=== PATIENT | female | born 1950 | race Caucasian/White ===

== ENCOUNTER 2023-07-26 17:44 | Emergency (ER) | payer OTHER, SELFPAY ==
[2023-07-26 17:47] VITALS: BP 164/77; PULSE 131; RESP 18; TEMP 36.9; O2SAT 93; BMI 32.2
--- NOTE | 2023-07-26 17:56 | ED_ITS ---
HPI - General Adult General Chief complaint: Allergic Reaction Stated complaint: chest pain Time Seen by Provider: 07/26/23 18:17 Source: patient Mode of arrival: ambulatory Limitations: no limitations History of Present Illness HPI narrative: Patient history of AFib , no history of allergic reactions in the past went to bed for a nap woke up with itching all over the body with slight redness bilateral palms took Benadryl prior to arrival still itching no shortness of breath Related Data Previous Rx's Medication Instructions Recorded diphenhydramine HCl 25 mg capsule 50 mg (2 x 25 mg) PO TID PRN 07/26/23 (Benadryl) allergic reaction #30 caps Allergies Allergy/AdvReac Type Severity Reaction Status Date / Time No Known Allergies Allergy Verified 07/26/23 17:48 Review of Systems 2 Review of Systems: Yes all other systems are reviewed and are negative [facility] Social History Social History Alcohol intake: never Smoked in Last 30 Days: No Use of substances other than those prescribed or required for medical reasons: No Advance Directives: No Advance Directives Information Provided: No Physical Exam ED Vital Signs: Vital Signs - 24 hr 07/26/23 17:47 07/26/23 19:12 07/26/23 20:58 Temperature 98.5 F 97.7 F Pulse Rate 131 H 109 H 110 H Respiratory Rate 18 20 18 Blood Pressure 164/77 H 154/85 H 146/85 H Pulse Oximetry 93 97 97 Oxygen Delivery Method Room Air Room Air Room Air BMI result Body Mass Index 32.2 Appearance: Alert. Oriented X3. No acute distress. Eyes: PERRLA, No Nystagmus ENT: Pharynx normal. Oral Mucosa moist lip and tongue normal Neck: Normal inspection. Neck supple. CVS: Normal heart rate and rhythm. Pulses normal. Respiratory: No respiratory distress. Equal air entry bilateral, no wheezing/rales/rhonchi Abdomen: Soft and nontender. Bowel sounds are present, no mass palpable, no CVA tenderness Skin: Skin warm and dry. No hives noted Normal skin turgor. Extremities: No lower extremity edema. No calf tenderness redness bilateral palm Neuro: Oriented X 3. No motor deficit. Medications Administered Discontinued Medications Generic Name Dose Route Start Last Admin Trade Name Freq PRN Reason Stop Dose Admin Diphenhydramine HCl 50 mg 07/26/23 18:38 07/26/23 19:07 Diphenhydramine Hcl 50 Mg/Ml Vial IVPUSH 07/26/23 18:39 50 mg ONCE ONE Administration Methylprednisolone Sodium Succinate 125 mg 07/26/23 18:38 07/26/23 19:07 Methylprednisolone Sod Succ 125 Mg/2 Ml Vial IVPUSH 07/26/23 18:39 125 mg ONCE ONE Administration Medical Decision Making Medical Decision Making [facility] Narrative: RME: 72 yold female presents to the ED for chest pain and having an allergic reaction. Patient has generalized HIves> negative for swelling of uvual. lungs clear. ROom air 02 sat 93%. Charge nurse Edwar made aware. patient brought in to the ED immediatley. Lab Data [facility] Lab Attestation statement: I reviewed the patient's lab results. 07/26/23 18:51 07/26/23 18:51 Labs: Lab Results 07/26/23 Range/Units 18:51 WBC 6.0 (4.8-10.8) X10*3/uL RBC 4.09 L (4.20-5.50) X10*6/uL Hgb 12.7 (12.0-16.0) g/dl Hct 38.2 (37.0-47.0) % MCV 93.4 (80.0-98.0) fL MCH 31.1 (27.0-33.0) pg MCHC 33.2 (31.0-35.0) g/dl RDW 13.4 (11.0-16.0) % Plt Count 172 (160-400) X10*3/uL MPV 10.2 (9.4-12.3) fL Immature Gran % (Auto) 1.2 H (0.0-0.4) % Neut % (Auto) 50.8 (45-73) % Lymph % (Auto) 39.9 (20-40) % Nicholas % (Auto) 6.8 (2-11) % Eos % (Auto) 0.8 (0-4) % Baso % (Auto) 0.5 (0-2) % Lymph # (Auto) 2.4 (1.2-4.9) X10*3/uL Nicholas # (Auto) 0.4 (0.1-1.2) X10*3/uL Eos # (Auto) 0.1 (0.0-0.4) X10*3/uL Baso # (Auto) 0.0 (0.0-0.2) X10*3/uL Abs Immat Gran (auto) 0.07 H (0.00-0.03) X10*3/uL Absolute Neuts (auto) 3.0 (2.0-8.3) x10*3/uL Absolute Nucleated RBC 0.000 (0.0-0.012) X10*3/uL Nucleated RBC % (auto) 0.0 (0.0-0.2) /100WBC Sodium 142 (135-145) mmol/L Potassium 3.8 (3.3-5.1) mmol/L Chloride 109 H (96-108) mmol/L Carbon Dioxide 21 L (22-29) mmol/L Anion Gap 16 (12-20) BUN 21 H (9-16) mg/dL Creatinine 0.77 (0.5-1.4) mg/dL Estim Creat Clear Calc 59.7 Estimated GFR > 60 Random Glucose 266 H (60-115) mg/dL Calcium 9.7 (8.4-10.2) mg/dL Discharge Plan Discharge Clinical Impression: Allergic reaction Patient Disposition: Home, Self-Care Instructions: General Allergic Reaction (ED) Additional Instructions: Cause of your allergic reaction is not very clear Take Benadryl 1-2 tablets every 6 hours as needed And follow with PCP for further management Prescriptions: New diphenhydramine HCl [Benadryl] 25 mg capsule 50 mg PO TID PRN (Reason: allergic reaction) Qty: 30 0RF Interventions: ED Discharge Assessment Last Done: 07/26/23 21:00 Discharge Date/Time: 07/26/23 21:00
--- NOTE | 2023-07-26 18:07 | ECG_ITS ---
Test Reason : CHEST PAIN Blood Pressure : / mmHG Vent. Rate : 120 BPM Atrial Rate : 120 BPM P-R Int : 128 ms QRS Dur : 062 ms QT Int : 336 ms P-R-T Axes : 059 047 072 degrees QTc Int : 474 ms Sinus tachycardia Otherwise normal ECG No previous ECGs available Referred By: Davian Beck Electronically Signed By:SOHAIL SCHAFER
--- NOTE | 2023-07-26 18:24 | PC.NURSE ---
pt appears itchy, sts she didn't eat or take anything different than any other day, took an hour and a half nap and woke up itchy all over . pt also reporting chest tightness but doesn't know if it is from anxiety. EKG obtained, 20G IV established to the RAC, pt placed on bedside monitor. currently resting quietly on stretcher in no apparent distress. awaiting provider pickup.
[2023-07-26 18:54] LABS: MANUAL DIFF FLAG NO
[2023-07-26 18:56] LABS: Basophils Percent Auto 0.5 % (0-2); Eosinophils Absolute Auto 0.1 X10*3/uL (0.0-0.4); Eosinophils Percent Auto 0.8 % (0-4); Hematocrit 38.2 % (37.0-47.0); Hemoglobin 12.7 g/dl (12.0-16.0); Imm Gran Abs Auto 0.07 X10*3/uL (0.00-0.03); Imm Gran Pct Auto 1.2 % (0.0-0.4); Lymphocytes Absolute Auto 2.4 X10*3/uL (1.2-4.9); Lymphocytes Percent Auto 39.9 % (20-40); Mean Corpuscular HGB Conc 33.2 g/dl (31.0-35.0); Mean Corpuscular Hemoglobin 31.1 pg (27.0-33.0); Mean Corpuscular Volume 93.4 fL (80.0-98.0); Mean Platelet Volume 10.2 fL (9.4-12.3); Monocytes Absolute Auto 0.4 X10*3/uL (0.1-1.2); Monocytes Percent Auto 6.8 % (2-11); Neutrophils Percent Auto 50.8 % (45-73); Platelet Count 172 X10*3/uL (160-400); Red Blood Count 4.09 X10*6/uL (4.20-5.50); Red Cell Distribution Width 13.4 % (11.0-16.0)
[2023-07-26] MEDS: methylPREDNISolone Sod Succ 125 MG/2 ML VIAL IVPUSH (19:07)
[2023-07-26] MEDS: diphenhydrAMINE HCL 50 MG/ML VIAL IVPUSH (19:07)
[2023-07-26 19:12] VITALS: BP 154/85; PULSE 109; RESP 20; TEMP 36.5; O2SAT 97
[2023-07-26 19:15] LABS: Anion Gap 16 (12-20); Blood Urea Nitrogen 21 mg/dL (9-16); Calcium 9.7 mg/dL (8.4-10.2); Carbon Dioxide 21 mmol/L (22-29); Chloride 109 mmol/L (96-108); Creatinine Clr Calc Pharmacy 59.7; Estimated Glomerular Filt Rate > 60; Glucose Random 266 mg/dL (60-115); Potassium 3.8 mmol/L (3.3-5.1); Sodium 142 mmol/L (135-145)
[2023-07-26 20:58] VITALS: BP 146/85; PULSE 110; RESP 18; O2SAT 97
== END 2023-07-26 21:00 | disposition home or self-care (01) ==
PROVIDERS: Emergency Provider Internal Medicine; PCP Internal Medicine
DX: R07.89 Other chest pain (principal); I48.91 Unspecified atrial fibrillation; Z79.899 Other long term (current) drug therapy
CPT/HCPCS: 36415; 80048; 85025; 93005; 96374; 96375; 99284; J1200; J2930

== ENCOUNTER 2025-02-06 11:27 | Outpatient (REF) | payer MEDICARE, SELFPAY ==
--- NOTE | ~2025-02-06 | XR_ITS ---
EXAMINATION: XR PARANASAL SINUSES 3 VIEWS HISTORY: SINUSITIS COMPARISON: There are no prior studies for comparison. FINDINGS: Four views of the paranasal sinuses are submitted. The bilateral frontal, maxillary, ethmoid, and sphenoid sinuses are well-aerated and clear. No air/fluid levels are identified. XR/XR sinus min 3V IMPRESSION: Unremarkable examination of the paranasal sinuses. Electronically signed by: Jhon Braun MD 02/06/2025 02:44 PM EDT RP
--- OUTSIDE RECORDS SUMMARY | 2025-02-06 13:08 | XMS_ITS | Clinical Summary ---
Author Organization [facility] [address] [facility] Address [address] [place] [address] Phone Care Team Providers Care Datapower Developer Name Role Phone Tone Valadez MD Primary Care Provider [phone] Allergies Active Allergy Reactions Criticality Noted Date Comments Omeprazole Magnesium Hives Medium 12/14/2017 Medications metFORMIN XR (GLUCOPHAGE-XR) 500 mg 24 hr tablet Take 1 tablet (500 mg total) by mouth 2 (two) times a day. 4 Active ammonium lactate (LAC-HYDRIN) 12 % lotion Apply to soles of feet daily. At night wear socks to bed 3 Active lansoprazole (PREVACID) [address] capsule Take 1 Capsule by mouth daily for 360 days. 4 02/25/20 25 Active fluticasone propionate (FLONASE) 50 mcg/actuation nasal spray 2 Sprays by Each Nare route daily. 4 Active loratadine (CLARITIN) 10 mg tablet Take 1 tablet (10 mg total) by mouth 1 (one) time each day. 3 Active hydrocortisone 1 % topical cream Apply topically to thick skin on the top of the foot once daily for 6 weeks 3 Active clotrimazole (LOTRIMIN) 1 % cream Apply to skin daily for 6 weeks 2 Active mv-min/iron/folic /calcium/vitK (WOMEN'S MULTIVITAMIN ORAL) Take by mouth. Activ e omega-3 acid ethyl esters (LOVAZA) 1 gram capsule Take by mouth. Activ e UNABLE TO FIND Take 1,000 mg by mouth. Calcium-Magnes ium-Vitamin D (CALCIUM 500 OR) Active lisinopriL (PRINIVIL,ZESTRIL ) 5 mg tablet Take 1 tablet (5 mg total) by mouth 1 (one) time each day. Active lancets (OneTouch Delica Plus Lancet) 33 gauge 1 Each by Does not apply route daily. Ell.9 - Does not apply Active glucose blood test strip Use to test blood sugar once a day Active OneTouch Ultra2 Meter misc 1 each by Other route 1 (one) time. Active Active Problems Problem Noted Date Diagnosed Date Thyroid nodule 09/27/2024 Hypertension 08/12/2024 Microalbuminuria 06/04/2019 Obesity (BMI 30.0-34.9) 06/04/2019 Osteoporosis 11/22/2017 Overview (08/12/2024): T score -3.2 lumbar spine, 11/18/2017. 06/2020 T score spine -1.6 hip -3.0 Type II diabetes mellitus with renal manifestati ons 2017 Hyperlipidemia 10/20/2017 Overview (08/12/2024): Total cholesterol 217 and LDL cholesterol 130, 07/11/2016 Adjustment disorder with mixed emotional feature s 05/29/2017 Allergic rhinitis 07/11/2016 Encounters Date Type Department Care Team Description 01/12/2025 10:00 AM EST Office Visit Orthopedic Surgery [facility] 160 [address] [facility] [address] [place] [phone] Analia Moran PA Glenohumeral arthritis, right (Primary Dx); Rotator cuff syndrome of right shoulder; Chronic pain of both shoulders 12/27/2024 9:15 AM EST Consult General Surgery [facility] 175 [facility] [address] [place] [phone] Sakshi aMnn MD Adenopathy (Primary Dx); Type 2 diabetes mellitus without complication, without long-term current use of insulin ([facility]); Thyroid nodule; Enlarged lymph node 12/27/2024 8:00 AM EST Office Visit Endocrinology - [place] [id number] [place] [phone] Farrah Giles PA Type 2 diabetes mellitus with diabetic microalbuminuria, without long-term current use of insulin ([facility]) (Primary Dx); Thyroid nodule; Osteoporosis, unspecified osteoporosis type, unspecified pathological fracture presence from Last 3 Months Immunizations Name Administration Dates Next Due Influenza trivalent, 0.5mL ( Fluzone High-dose) 65yo and older 09/21/2023,08/16/2021,09/30/2020 Influenza trivalent, with pr eservative (Fluzone; Afluria) 6mo and older 10/22/2010 Pfizer (ages 12 & older) Bivalent, COVID-19 11/10 Pfizer SARS-CoV-2 COVID-19, mRNA, LNP-S, preservative free 09/09/2021 Pneumococcal conjugate 13 va lent (Prevnar 13, PCV13) 2mo and older 10/20/2017 Pneumococcal polysaccharide 23 valent (Pneumovax 23) 2yo and older 07/11/2016 Td Tetanus diptheria (Tdvax) 7yo and older 11/18,01/11/2018,07/08/2001 Td, Unspecified 07/08/2001 Zoster recombinant (Shingrix ) 19yo and older 04/09/2023,12/23/2022 Surgical History Surgery Date Site/Laterality Comments MULTIPLE TOOTH EXTRACTIONS PROCEDURE: HISTORICAL DENTAL EXTRACTION CHOLECYSTECTOMY 1970 PROCEDURE: HISTORICAL CHOLECYSTECTOMY OTHER SURGICAL HISTORY PROCEDURE: ---- OTHER ----; COMMENT: D and C times 2 COLONOSCOPY 12/14/2017 PROCEDURE: HISTORICAL COLONOSCOPY; COMMENT: negative screening exam. COLONOSCOPY 01/19/2002 PROCEDURE: HISTORICAL COLONOSCOPY; COMMENT: Negative screening exam. (report in voice recognition folder on M drive.) ESOPHAGOGASTRODUODENOSCOPY 11/24/2022 PROCEDURE: MD EGD TRANSORAL BIOPSY SINGLE/MULTIPLE; COMMENT: Manzo's esophagus, esoph ulcer, hiatal hernia Medical History Medical History Date Comments Uncontrolled type 2 diabetes mellitus without complication 2017 DX:Uncontrolled type 2 diabe mariia mellitus without complication Osteoporosis 11/22/2017 DX:Osteoporosis; COMMENT: T score -3.2 lumbar spine, 11/18/2017. Hyperlipidemia 10/20/2017 DX:Hyperlipidemi a; COMMENT: Total cholesterol 217 and LDL cholesterol 130, 07/11/2016 Allergic rhinitis 07/11/2016 DX:Allergic rh initis Adjustment disorder with mix ed emotional features 05/29/2017 DX:Adjustment disorder with mixed emotional features History of malignant neoplas m of large intestine DX:History of malignant neop lasm of large intestine Family History Medical History Relation Name Comments Other: Other Father Alzheimers age 55, age 78 Stroke Mother 82 Breast cancer Neg Hx Colon cancer Neg Hx Ovarian cancer Neg Hx Relation Name Status Comments Father Mother Social History Tobacco Use Types Packs/Day Years Used Date Smoking Tobacco: Former Cigarettes 1 12/31/1980 - 11/09/1990 Smokeless Tobacco: Never Tobacco Cessation:Counseling Given: Not Answered Alcohol Use Standard Drinks/Week Comments No 0 (1 standard drink = 0.6 oz pur e alcohol) Comments Unknown Sex and Gender Information Value Date Recorded Sex Assigned at Not on file Legal Sex Female 1:53 PM EST Gender Identity Not on file Sexual Orientation Not on file Obstetrics History Last Filed Vital Signs Vital Sign Reading Time Taken Comments Blood Pressure 121/79 12/27/2024 9:20 AM EST Pulse 88 12/27/2024 9:20 AM EST Temperature 35.9 ??C (96.6 ??F) 12/27/2024 9:20 AM ES T Respiratory Rate 16 09/27/2024 1:33 PM EST Oxygen Saturation 98% 09/22/2024 11:20 AM EST Inhaled Oxygen Concentration - - Weight 72.1 kg (159 lb) 01/12/2025 10:15 AM EST Height 152.4 cm (5') 01/12/2025 10:15 AM EST Body Mass Index 31.05 01/12/2025 10:15 AM EST Plan of Treatment Upcoming Encounters Date Type Department Care Team (Late st Contact Info) Description 03/30/2025 9:15 AM EDT Appointment Radiology Department - [address] [phone] 03/30/2025 10:00 AM EDT Appointment Bone Density - [address] [phone] 04/04/2025 8:20 AM EDT Office Visit Endocrinology [address] [phone] Farrah Giles PA [address] [place] [address] 04/17/2025 8:30 AM EDT Office Visit Orthopedic Surgery - [place] [address] [phone] Analia Moran PA [address] [address] 04/17/2025 2:00 PM EDT Office Visit Adult Medicine [address] [phone] Tone Valadez MD [address] [place] [address] 05/04/2025 4:30 PM EDT Appointment Radiology Department [address] [phone] 09/25/2025 4:00 PM EST Office Visit Adult [address] [phone] Tone Valadez MD [address] [place] [address] Health Maintenance Due Date Last Done Comments Diabetes: Annual Foot Exam 1960 RSV Immunization Patients 60+ Years Old (1 - Risk 60-74 years 1-dose series) 2010 Depression Screening 10/18/2022 Falls Risk Assessment 10/18/2022 Medicare Annual Wellness Visit 10/18/2022 Social Influencers of Health Screening 10/18/2022 COVID-19 Vaccine ( season) 2024 03/01/2024, 07/31/2023, 12/04/2022, Additional history exists Influenza Vaccine (#1) 2024 , 08/16/2021, 09/30/2020, Additional history exists Diabetes: Annual Retina Eye Exam 11/23/2024 11/23/2023 Breast Cancer Screening 01/20/2025 01/21/20 23, 01/11/2022, 11/23/2019, Additional history exists Diabetes: Blood Sugar Control Test (HGBA1C) 04/11/2025 10/11/2024, 09/12/2024, 03/04/2024, Additional history exists Diabetes: Annual Urine Albumin-Creatinine Ratio (uACR) 09/26/2025 09/26/2024, 09/21/2023 Diabetes: Annual GFR (Glomerular Filtration Rate) 09/26/2025 09/26/2024, 09/21/2023 Hypertension/CHF/CAD Annual BMP Blood Test 09/26/2025 09/26/2024, 09/21/2023 Colorectal Cancer Screening: Colonoscopy 12/14/2027 12/14/2017 Cholesterol Screening (Lipid Panel) 09/26/2029 09/26/2024, 09/21/2023 DTaP,Tdap,and Td Vaccines (5 - Td or Tdap) 11/18/2029 11/18/2019, 01/11/2018, 07/08/2001, Additional history exists Osteoporosis Screening (Bone Density Screening) 08/26/2032 08/26/2022, 07/02/2020, 11/18/2017 Hepatitis C Screening Completed 07/11/2016 Pneumococcal Vaccine: 50+ Years Completed 10/20/2017, 07/11/2016 Zoster Vaccines Completed 04/09/2023, 12/23/2022 HIB Vaccines Aged Out No longer eligi ble based on patient's age to complete this topic HPV Vaccines Aged Out No longer eligi ble based on patient's age to complete this topic Hepatitis A Vaccines Aged Out No long er eligible based on patient's age to complete this topic Hepatitis B Vaccines Aged Out No long er eligible based on patient's age to complete this topic IPV Vaccines Aged Out No longer eligi ble based on patient's age to complete this topic MMR Vaccines Aged Out No longer eligi ble based on patient's age to complete this topic Meningococcal ACWY Vaccine Aged Out N o longer eligible based on patient's age to complete this topic Meningococcal B Vacine Aged Out No lo nger eligible based on patient's age to complete this topic RSV Immunization Patients Under 20 months Aged Out No longer eligible based on patient's age to complete this topic Varicella Vaccines Aged Out No longer eligible based on patient's age to complete this topic Procedures Procedure Name Priority Date/Time Associated Diagnosis Comments HEMOGLOBIN A1C Routine 10/11/2024 3:52 PM EST Type 2 diabetes mellitus with hyperglycemia, without long-term current use of insulin ([facility]) MICROALBUMIN CREATININE URINE RATIO Routine 09/26/2024 9:57 AM EST Type 2 diabetes mellitus with other diabetic kidney complication, without long-term current use of insulin ([facility]) BASIC METABOLIC PANEL Routine 09/26/2024 9:57 AM EST Type 2 diabetes mellitus with other diabetic kidney complication, without long-term current use of insulin ([facility]) LIPID PANEL WITH REFLEX TO DIRECT LDL Routine 09/26/2024 9:57 AM EST Pure hypercholesterolemia DIABETES EYE EXAM Routine 11/23/2023 SCREENING MAMMOGRAPHY BI 2-VIEW BREAST INC CAD Routine 01/20/2023 9:31 AM EDT Encounter for screening mammogram for malignant neoplasm of breast DXA BONE DENISTY STUDY VERTEBRAL FRACTURE, INCLUDING LATERAL VIEW Routine 08/26/2022 10:23 AM EDT Age-related osteoporosis without current pathological fracture COLONOSCOPY Routine 12/14/2017 HEPATITIS C SCREENING Routine 07/11/2016 from Last 3 Months or Most Recently Relevant to Health Maintenance Results * (ABNORMAL) Hemoglobin A1c (10/11/2024 3:52 PM EST) Hemoglobin A1C 6.5(H) <6.5 % LAB CHEMISTRY METHOD 10/11/2024 9:17 PM EST [facility] Mean Bld Glu Estim. 140 mg/dL LAB CHEMISTRY METHOD 10/11/2024 9:17 PM EST [facility] Blood Venous blood specimen / Unknown Venipuncture / Unknown 10/11/2024 3:52 PM EST 10/11/2024 3:52 PM EST us Farrah MCKEON LAB BLOOD ORDERABLES Final Resul t [facility] [address] [place] [address], [place] [phone] * (ABNORMAL) Lipid panel with reflex to direct LDL (09/26/2024 9:57 AM EST) Cholesterol 196 0 - 200 mg/dL LAB CHEMISTRY METHOD 09/26/2024 3:04 PM [facility] Triglycerides 234(H) 0 - 150 mg/dL LAB CHEMISTRY METHOD 09/26/2024 3:04 PM [facility] HDL 47 >=40 mg/dL LAB CHEMISTRY METHOD 09/26/2024 3:04 PM [facility] LDL Calculated 102(H) 0 - 100 mg/dL LAB CHEMISTRY METHOD 09/26/2024 3:04 PM [facility] VLDL Cholesterol Sammy 46.8 mg/dL LAB CHEMISTRY METHOD 09/26/2024 3:04 PM [facility] Non HDL Chol. (LDL+VLDL) 149(H) <145 mg/dL LAB CHEMISTRY METHOD 09/26/2024 3:04 PM [facility] Chol/HDL Ratio 4.2 0.0 - 4.4 LAB CHEMISTRY METHOD 09/26/2024 3:04 PM [facility] Blood Venous blood specimen / Unknown Venipuncture / Unknown 09/26/2024 9:57 AM EST 09/26/2024 9:57 AM EST us Tone Valadez MD LAB BLOOD ORDERABLES Final Resu lt Performing Organization Address City/[facility]/ZIP Co de Phone Number [facility] [address] [place] [address], [place] [phone] * Microalbumin creatinine urine ratio (09/26/2024 9:57 AM EST) Creatinine, Urine 58.0 mg/dL LAB CHEMISTRY METHOD 09/26/2024 3:56 PM EST [facility] Microalb, Ur 15.8 0.0 - 29.0 mg/L LAB CHEMISTRY METHOD 09/26/2024 3:56 PM EST [facility] Microalb/Creat Ratio 27 <30 mg/g creat LAB CHEMISTRY METHOD 09/26/2024 3:56 PM EST [facility] Urine Urine specimen obtained by clean catch procedure / Unknown Non-blood Collection / Unknown 09/26/2024 9:57 AM EST 09/26/2024 9:57 AM EST us Tone Valadez MD LAB URINE ORDERABLES Final Resu lt Performing Organization Address City/[facility]/ZIP Co de Phone Number [facility] [address] [place] [address], [place] [phone] * (ABNORMAL) Basic metabolic panel (09/26/2024 9:57 AM EST) Pathologist [facility] [place] Sodium 141 133 - 145 mmol/L LAB CHEMISTRY METHOD 09/26/2024 3:04 PM EST [facility] Potassium 4.7 3.5 - 5.5 mmol/L LAB CHEMISTRY METHOD 09/26/2024 3:04 PM [facility] Chloride 107 96 - 110 mmol/L LAB CHEMISTRY METHOD 09/26/2024 3:04 PM [facility] CO2 27 21 - 32 mmol/L LAB CHEMISTRY METHOD 09/26/2024 3:04 PM [facility] Anion Gap 7 3 - 11 LAB CHEMISTRY METHOD 09/26/2024 3:04 PM [facility] Glucose 152(H) 70 - 100 mg/dL LAB CHEMISTRY METHOD 09/26/2024 3:04 PM [facility] BUN 15 5 - 25 mg/dL LAB CHEMISTRY METHOD 09/26/2024 3:04 PM [facility] Creatinine 0.76 0.50 - 1.10 mg/dL LAB CHEMISTRY METHOD 09/26/2024 3:04 PM [facility] eGFR 83 >=60 mL/min/1. 73m2 LAB CHEMISTRY METHOD 09/26/2024 3:04 PM [facility] Comment:Calculation based on the??Chronic Kidney Disease Epidemiology Collaboration (CKD-EPI) equation refit??without adjustment for race. BUN/Creatinine Ratio 19.7 LAB CHEMISTRY METHOD 09/26/2024 3:04 PM [facility] Calcium 10.1 8.5 - 10.5 mg/dL LAB CHEMISTRY METHOD 09/26/2024 3:04 PM [facility] Blood Venous blood specimen / Unknown Venipuncture / Unknown 09/26/2024 9:57 AM EST 09/26/2024 9:57 AM EST Tone Valadez MD LAB BLOOD ORDERABLES Final Resu lt [facility] [address] [place] [address], * Diabetes Eye Exam (11/23/2023) Diabetes: Annual Retina Eye Exam abstracted Historical Provider HEALTH MAINTENANCE Final Result * SCREENING MAMMOGRAPHY BI 2-VIEW BREAST INC CAD (01/20/2023 9:31 AM EDT) Anatomical Region Laterality Modality Radiographic Yvette ging 01/11/2022 8:40 AM EST Narrative 01/20/2023 1:28 PM EDT This is a summary report. The complete report is available in the patient's medical record. If you cannot access the medical record, please contact the sending organization for a detailed fax or copy. BILATERAL 2D and 3D DIGITAL SCREENING MAMMOGRAM History: Routine screening. ??No current breast complaints. ?? Comparison: Multiple priors dating back to 11/23/2018 Technique: Bilateral full-field digital 2D and 3D mammography was performed using standard CC and MLO projections CAD was used to evaluate this mammogram. Findings: Density: ??There are scattered areas of fibroglandular density-B RIGHT: No suspicious masses, groups of microcalcification or areas of architectural distortion identified. Stable typically benign parenchymal asymmetries LEFT: No suspicious masses, groups of microcalcifications or areas of architectural distortion identified. Stable typically benign parenchymal asymmetries IMPRESSION: : 1. ??No mammographic evidence of malignancy. BI-RADS Category 2 benign findings Recommendation: Routine annual screening mammography is recommended Procedure Note Oleg Casarez MD - 12/14/2023 This is a summary report. The complete report is available in thepatient's medical record. If you cannot access the medical record, pleasecontact the sending organization for a detailed fax or copy. BILATERAL 2D and 3D DIGITAL SCREENING MAMMOGRAM History: Routine screening. No current breast complaints. Comparison: Multiple priors dating back to 11/23/2018 Technique: Bilateral full-field digital 2D and 3D mammography wasperformed using standard CC and MLO projections CAD was used to evaluate this mammogram. Findings: Density: There are scattered areas of fibroglandular density-B RIGHT: No suspicious masses, groups of microcalcification or areas ofarchitectural distortion identified. Stable typically benign parenchymalasymmetries LEFT: No suspicious masses, groups of microcalcifications or areas ofarchitectural distortion identified. Stable typically benign parenchymalasymmetries IMPRESSION: : 1. No mammographic evidence of malignancy. BI-RADS Category 2 benign findings Recommendation: Routine annual screening mammography is recommended Aziza MCKEON IMG XR PROCEDUR ES Final Result * DXA BONE DENISTY STUDY VERTEBRAL FRACTURE, INCLUDING LATERAL VIEW (08/26/2022 10:23 AM EDT) Anatomical Region Laterality Modality Ultrasound 01/09/2022 9:57 AM EST Narrative 08/27/2022 7:53 AM EDT BONE DENSITY SCAN (DEXA): FINDINGS: Lumbar Spine T-score is -1.8. ?? (SD relative to 20-29 y/o adult) Z-score is 0.4. ??(SD relative to age matched peers) This is considered osteopenia by WHO criteria. Left Hip T-score is -3.5. Z-score is -1.6. This is considered osteoporosis by WHO criteria. Comparison exam(s): 07/02/2020 and 11/18/2017. Lumbar spine: No statistically significant change in bone mineral density compared with 2020. ?? 3.4% loss of bone mineral density compared with 2018, statistically significant at the 95% confidence level. Left hip: No statistically significant change in bone mineral density compared with 2020. ??7.6% loss of bone mineral density compared with 2018, statistically significant at the 95% confidence level. Lateral survey view of the thoracolumbar spine shows no significant compression deformities. IMPRESSION: IMPRESSION: ?? Osteoporosis by WHO criteria. [facility] Department of Internal Medicine recommends using National Osteoporosis Foundation (NOF) guidelines in treatment decisions related to osteoporosis. NOF guidelines suggest considering treatment for postmenopausal women and men aged 50 or older presenting with the following: History of hip or vertebral fracture. T-score = -2.5 (DXA) at the femoral neck, total hip, or spine, after appropriate evaluation to exclude secondary causes. Low bone mass (T-score between -1.0 and -2.5 at the femoral neck or spine) AND a 10-year probability of a hip fracture = 3% OR a 10-year probability of a major osteoporosis-related fracture = 20% based on the [place]-adapted WHO algorithm Please note that all treatment decisions require clinical judgment and consideration of individual patient factors, including patient preferences, co-morbidities, previous drug use, risk factors not captured in the FRAX model (e.g., frailty, falls, vitamin D deficiency, increased bone turnover, interval significant decline in bone density) and possible under- or over-estimation of fracture risk by FRAX. Optional alternative screening schedule based on michael Olmedo., [facility] November 27, 2011 for patients with osteopenia (based on hip BMD T-score) is as follows: * ??advanced osteopenia (T scores -2.00 to -2.49), BMD testing every year * ??moderate osteopenia (T scores -1.50 to -1.99), BMD testing every 5 years mild osteopenia or normal BMD (T scores -1.50 and higher), BMD testing every 15 years Procedure Note Meliza Delgadillo MD - 10/28/2022 BONE DENSITY SCAN (DEXA): FINDINGS: Lumbar Spine T-score is -1.8. (SD relative to 20-29 y/o adult) Z-score is 0.4. (SD relative to age matched peers) This is considered osteopenia by WHO criteria. Left Hip T-score is -3.5. Z-score is -1.6. This is considered osteoporosis by WHO criteria. Comparison exam(s): 07/02/2020 and 11/18/2017. Lumbar spine: No statistically significant change in bone mineral densitycompared with 2019. 3.4% loss of bone mineral density compared with 2018, statisticallysignificant at the 95% confidence level. Left hip: No statistically significant change in bone mineral densitycompared with 2019. 7.6% loss of bone mineral density compared with 2018, statisticallysignificant at the 95% confidence level. Lateral survey view of the thoracolumbar spine shows no significantcompression deformities. IMPRESSION: IMPRESSION: Osteoporosis by WHO criteria. [facility] Department of Internal Medicine recommendsusing National Osteoporosis Foundation (NOF) guidelines in treatment decisions related toosteoporosis. NOF guidelines suggest considering treatment for postmenopausal women and menaged 50 or older presenting with the following: History of hip or vertebral fracture. T-score = -2.5 (DXA) at the femoral neck, total hip, or spine, afterappropriate evaluation to exclude secondary causes. Low bone mass (T-score between -1.0 and -2.5 at the femoral neck or spine)AND a 10-year probability of a hip fracture = 3% OR a 10-year probability of a majorosteoporosis-related fracture = 20% based on the [place]-adapted WHO algorithm Please note that all treatment decisions require clinical judgment andconsideration of individual patient factors, including patient preferences, co- morbidities,previous drug use, risk factors not captured in the FRAX model (e.g., frailty, falls, vitaminD deficiency, increased bone turnover, interval significant decline in bone density) andpossible under- or over-estimation of fracture risk by FRAX. Optional alternative screening schedule based on michael Olmedo., NEJMJanuary 2011 for patients with osteopenia (based on hip BMD T-score) is as follows: * advanced osteopenia (T scores -2.00 to -2.49), BMD testing every year * moderate osteopenia (T scores -1.50 to -1.99), BMD testing every 5years mild osteopenia or normal BMD (T scores -1.50 and higher), BMD testingevery 15 years Seble MCKEON [facility] PROCEDURES Final Resul t * Colonoscopy (12/14/2017) [facility] Colonoscopy abstracted, no interpretation Anatomical Region Laterality Modality Other Historical Provider HEALTH MAINTENANCE Final Result * Hepatitis C Screening (07/11/2016) [facility] Hepatitis C Screening abstracted Historical Provider HEALTH MAINTENANCE Final Result from Last 3 Months or Most Recently Relevant to Health Maintenance Insurance [employer] - [place] MEDICARE ADVANTAGE Care Teams Datapower Developer Relationship Specialty Start Date End Date Tone Valadez MD [address] [place] [address] PCP - General Internal Medicine 06/13/20
== END 2025-02-06 11:28 | disposition home or self-care (01) ==
LOC: HO.XRAY 11:27
PROVIDERS: PCP Internal Medicine; Visit Provider Otolaryngology
DX: J32.9 Chronic sinusitis, unspecified (principal)
CPT/HCPCS: 70220

== ENCOUNTER → 2025-02-06 11:33 | Outpatient (BNV) | payer MEDICARE, SELFPAY | PROVIDERS: PCP Internal Medicine; Visit Provider Radiology Diagnostic Radiology | DX: J01.90 Acute sinusitis, unspecified (principal) | CPT/HCPCS: 70220 ==

== ENCOUNTER 2025-06-27 15:40 | Outpatient (AMB) | payer MEDICARE, SELFPAY ==
--- OUTSIDE RECORDS SUMMARY | 2025-06-21 13:30 | XMS_ITS | Encounter Summary ---
Author Organization [facility] Address [address] [place] [address] Care Team Providers Care Payroll Tax Specialist Name Role Phone Tone Valadez MD Primary Care Provider [phone] Reason for Referral * Imaging (Emergency) - Pending Review Specialty Diagnoses / Procedures Referred By Contac t Referred To Contact Diagnoses Leg swelling Procedures Vascular US duplex lower extremity venous bilateral Linda Bernal NP [address] [place] [address] Phone: tel: fax: [facility] Referral ID Status Reason Start Date Expiration Date V isits Requested Visits Authorized [id number] Pending Review 06/19/2025 06/19/2026 1 1 Reason for Visit * Imaging (Emergency) - Pending Review Specialty Diagnoses / Procedures Referred By Contac t Referred To Contact Diagnoses Leg swelling Procedures Vascular US duplex lower extremity venous bilateral Linda Bernal NP [address] [place] [address] Phone: tel: fax: [facility] Referral ID Status Reason Start Date Expiration Date V isits Requested Visits Authorized [id number] Pending Review 06/19/2025 06/19/2026 1 1 Encounter Details Date Type Department Care Team (Latest Contact Info) Description 06/21/2025 1:30 PM EDT - 06/21/2025 11:59 PM EDT Hospital Encounter Radiology Department - [address] [phone] Leg swelling Discharge Disposition: Home or Self Care Social History Tobacco Use Types Packs/Day Years Used Date Smoking Tobacco: Former Cigarettes 1 12/31/1980 - 11/09/1990 Smokeless Tobacco: Never Alcohol Use Standard Drinks/Week Comments No 0 (1 standard drink = 0.6 oz pur e alcohol) Housing Instability Answer Date Recorde d Are you worried that in the next 2 months you may not have stable housing? No 04/17/2025 Food Access & Nutrition Answer Date Rec orded Do you have access to a vari ety of food including fruits and vegetables? Yes 04/17/2025 Access to Healthcare Answer Date Record ed Within the last 3 months, ho w many times did you visit the emergency department for your medical care? 0 04/17/2025 Health Literacy Answer Date Recorded How often do you need to hav e someone help you when you read instructions, pamphlets, or other written material from your doctor or pharmacy? Never 04/17/2025 Caregiver: How often do you need to have someone help you when you read instructions, pamphlets, or other written material from your doctor or pharmacy? Not on file 04/17/2025 Financial Risk Answer Date Recorded How hard is it for you to pa y for the very basics like food, housing, medical care, and air conditioning / heating? Not very hard 04/17/2025 Transportation Answer Date Recorded Has the lack of transportati on kept you from meetings, work, or from getting things needed for daily living? No Has the lack of transportati on kept you from medical appointments or from getting medications? No 04/17/2025 Social Isolation Answer Date Recorded How often do you feel lonely or isolated from th ose around you? Rarely 04/17/2025 Food Risk Answer Date Recorded Within the past 12 months we worried whether our food would run out before we got money to buy more. Never true 04/17/2025 Within the past 12 months th e food we bought just didn't last and we didn't have money to get more. Never true 04/17/2025 Dependent Care Answer Date Recorded Do you need help finding or paying for care for your loved ones. For example, child neurologist or elderly care for an older adult? Yes 04/17/2025 Education Answer Date Recorded Do you think completing more education or training, like finishing a GED, going to college, or learning a trade, would be helpful for you? No 04/17/2025 Employment and Income Answer Date Recor ded During the last four weeks, have you been actively looking for work? No 04/17/2025 Living Situation Answer Date Recorded What is your living situation? 0 04/17/2025 Comments No Sex and Gender Information Value Date Recorded Sex Assigned at Female 04/16/2025 9:02 PM EDT Legal Sex Female 1:53 PM EST Gender Identity Female 04/16/2025 9:02 PM EDT Sexual Orientation Straight 04/16/2025 9: 02 PM EDT documented as of this encounter Medications at Time of Discharge ammonium lactate (LAC-HYDRIN) 12 % lotion 11/25/2022 clotrimazole (LOTRIMIN) 1 % cream 05/21/2022 hydrocortisone 1 % topical cream 11/25/2022 ketoconazole (NIZORAL) 2 % cream Apply topically 1 (one) time each day. 30 g 2 04/24/2025 lancets (Retina Implantuch Delica Plus Lancet) 33 gauge 1 Each by Does not apply route daily. Ell.9 - Does not apply lansoprazole (PREVACID) [address] capsule Take 1 capsule (30 mg total) by mouth 1 (one) time each day. Do not crush or chew. 90 each 3 05/25/2025 lisinopriL (PRINIVIL,ZESTRIL) 5 mg tablet TAKE 1 TABLET BY MOUTH EVERY DAY 90 tablet 1 02/07/2025 loratadine (CLARITIN) 10 mg tablet Take 1 tablet (10 mg total) by mouth 1 (one) time each day. 09/03/2023 metFORMIN XR (GLUCOPHAGE-XR) 500 mg 24 hr tablet TAKE 1 TABLET BY MOUTH TWICE A DAY 180 tablet 1 02/07/2025 mv-min/iron/folic/ calcium/vitK (WOMEN'S MULTIVITAMIN ORAL) Take by mouth. omega-3 acid ethyl esters (LOVAZA) 1 gram capsule Take by mouth. [employer] Ultra Test test strip USE TO TEST BLOOD SUGAR ONCE A DAY 100 strip 3 05/10/2025 OneTouch Ultra2 Meter misc 1 each by Other route 1 (one) time. 02/16/2024 UNABLE TO FIND Take 1,000 mg by mouth. Calcium-Magnesi um-Vitamin D (CALCIUM 500 OR) documented as of this encounter Discharge Disposition Disposition Code Departure Means Destination Home or Self Care documented in this encounter Plan of Treatment Upcoming Encounters Date Type Department Care Team (Late st Contact Info) Description 06/30/2025 8:00 AM EDT Treatment Outpatient Rehabilitation - [address] [phone] Parminder Velez, TROUBLE TRACER 07/05/2025 9:30 AM EDT Treatment Outpatient Rehabilitation - [address] [phone] Alejandro Nieto, PT 07/21/2025 9:00 AM EDT Office Visit Orthopedic Surgery [facility] 160 175 [facility] 160 [place] [address] Analia Moran PA [address] [address] 07/27/2025 8:30 AM EDT Office Visit Orthopedic Surgery [facility] [address] [phone] Emiliano Bennett, DPM [address] [address] 09/25/2025 4:00 PM EST Office Visit [facility] Medicine [facility] [address] [phone] Tone Valadez MD [address] [place] [address] 11/15/2025 8:00 AM EST Office Visit Endocrinology [address] [phone] Farrah Giles PA [address] [place] [address] documented as of this encounter Goals Goal Patient Goal Type Associated Problems Recent Progress Patient-Stated? 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 (Progress made) Pt will demonstrate combined right shoulder ext, adduction and IR to L4 for dressing behind back. (Not met) Pt will demonstrate a 1/2 grade improvement in R UE strength deficits to increase tolerance to functional activities. (Progress made). Pt is Independent and compliant with initial HEP. (Met) LTG's 12 visits General Yes Alejandro Nieto PT Note: Pt will demonstrate active R shoulder flexion to 125 degrees or better for dressing overhead or reaching top shelves. Pt will demonstrate combined right shoulder extension, adduction and IR to T12 or better for dressing behind back. Pt will demonstrate a 1 grade improvement in R UE strength deficits to increase tolerance to functional activities and normalize R GH joint arthrokinematics. Pt will be Independent and compliant with final HEP. documented as of this encounter Procedures Procedure Name Priority Date/Time Associated Diagnosis Comments VAS US DUPLEX LOWER EXT VENOUS BILAT STAT 06/21/2025 1:59 PM EDT Leg swelling documented in this encounter Results * Vascular US duplex lower extremity venous bilateral (06/21/2025 1:59 PM EDT) Anatomical Region Laterality Modality Vascular, Abdomen Ultrasound 06/21/2025 4:19 PM EDT Impressions 06/21/2025 4:20 PM EDT No ultrasound evidence of deep venous thrombus in either the left or right leg from the upper groins throughout the calves. -------- FINAL REPORT -------- Dictated By: Nessa Elizondo Dictated Date: 06/21/2025 16:19 ET Assigned Physician: Nessa Elizondo Reviewed and Electronically Signed By: Nessa Elizondo Signed Date: 06/21/2025 16:20 ET Workstation ID: [id number] Transcribed By: Self Edit Transcribed Date: 06/21/2025 16:19 ET Narrative 06/21/2025 4:20 PM EDT VAS US DUPLEX LOWER EXT VENOUS BILAT LOWER EXTREMITY VENOUS ULTRASOUND, BILATERAL HISTORY: Bilateral legs edema. TECHNIQUE: Venous ultrasound of the left and right legs was performed from the upper groins throughout the calves. FINDINGS: No echogenic thrombus was seen. The deep venous system throughout the left and right legs was compressible. There was normal waveform respiratory phasicity. There was normal augmentation of color flow and duplex Doppler wave form throughout the deep venous system during compression at the ankles. No fluid or cysts are seen in either popliteal fossa. Procedure Note Nessa Elizondo MD - 06/21/2025 VAS US DUPLEX LOWER EXT VENOUS BILAT LOWER EXTREMITY VENOUS ULTRASOUND, BILATERAL HISTORY: Bilateral legs edema. TECHNIQUE: Venous ultrasound of the left and right legs was performed fromthe upper groins throughout the calves. FINDINGS: No echogenic thrombus was seen. The deep venous systemthroughout the left and right legs was compressible. There was normalwaveform respiratory phasicity. There was normal augmentation of colorflow and duplex Doppler wave form throughout the deep venous system duringcompression at the ankles. No fluid or cysts are seen in either poplitealfossa. IMPRESSION: No ultrasound evidence of deep venous thrombus in either the left or rightleg from the upper groins throughout the calves. -------- FINAL REPORT -------- Dictated By: Nessa Elizondo Dictated Date: 06/21/2025 16:19 ET Assigned Physician: Nessa Elizondo Reviewed and Electronically Signed By: Nessa Elizondo Signed Date: 06/21/2025 16:20 ET Workstation ID: [id number] Transcribed By: Self Edit Transcribed Date: 06/21/2025 16:19 ET us Linda Bernal NP CV VASCULAR PROCEDURES Final Result documented in this encounter Visit Diagnoses Diagnosis Leg swelling Swelling of limb documented in this encounter Additional Health Concerns Assessment Noted Time PHQ-9 Depression Total Score: 0 04/17/20 25 2:01 PM EDT documented as of this encounter Care Teams Payroll Tax Specialist Relationship Specialty Start Date End Date Tone Valadez MD [address] [place] [address] PCP - General Internal Medicine 06/13/20 documented as of this encounter
--- OUTSIDE RECORDS SUMMARY | 2025-06-27 16:59 | XMS_ITS ---
Author Name [facility] Organization [facility] Care Team Organization Name Specialty Phone Email Start Date End Da te [facility] TOMAS GAL Primary Care 09/16/2022 4
== END 2025-06-27 15:42 | disposition home or self-care (01) ==
LOC: HO.HMGAL 15:40
PROVIDERS: PCP Internal Medicine; Visit Provider Registered Nurse Emergency
DX: J30.89 Other allergic rhinitis (principal)
CPT/HCPCS: 95117; 95165

== ENCOUNTER 2025-07-05 15:39 | Outpatient (AMB) | payer MEDICARE, SELFPAY ==
--- OUTSIDE RECORDS SUMMARY | 2025-07-05 09:30 | XMS_ITS | Encounter Summary ---
Author Organization [facility] Address [address] [place] [address] Care Team Providers Care Screw Machine Hand Name Role Phone Tone Valadez MD Primary Care Provider [phone] Reason for Visit * Consultation (Routine) - Authorized Specialty Diagnoses / Procedures Referred By Nuno ferris Referred To Contact Physical Therapy Diagnoses Glenohumeral arthritis, right Rotator cuff syndrome of right shoulder Chronic pain of both shoulders Analia Moran, PA [address] [place] [address] Phone: tel: fax: Referral ID Status Reason Start Date Expiration Date Visits Requested Visits Authorized [id number] Authorized Consult and Treat 04/17/2025 04/17/2026 13 13 Encounter Details Date Type Department Care Team (Latest Contact Info) Description 07/05/2025 9:30 AM EDT Treatment Outpatient Rehabilitation - [address] [phone] Alejandro Nieto, PT Glenohumeral arthritis, right (Primary Dx) Social History Tobacco Use Types Packs/Day Years [...] care for your loved ones. For example, childhood teacher or elderly care for an older adult? [...] PM EDT documented as of this encounter Progress Notes * Alejandro Nieto, PT - 07/05/2025 9:30 AM EDT [facility] - Outpatient PHYSICAL THERAPY DAILY TREATMENT NOTE - OP Date: 07/05/2025 Visit Number: [id number] Patient Name: Philly Pike : 1950 Age: 74 y.o. Gender: female Diagnosis: ICD-10-CM ICD-9-CM 1. Glenohumeral arthritis, right M19.011 715.91 Date of Onset/Surgery: 04/17/2025 Referring Provider: Analia Moran PA Insurance: Payor: [employer] [facility] MEDICARE ADVANTAGE / Plan: [facility] MEDICARE ADVANTAGE / Product Type: *No Product type* / Patient Identified by: Alejandro Nieto PT Language: Cook Islander Medications: Current Outpatient Medications on File Prior to Visit Medication Sig Dispense Refill ammonium lactate (LAC-HYDRIN) 12 % lotion clotrimazole (LOTRIMIN) 1 % cream hydrocortisone 1 % topical cream ketoconazole (NIZORAL) 2 % cream Apply topically 1 (one) time each day. 30 g 2 lancets ([employer] Delica Plus Lancet) 33 gauge 1 Each by Does not apply route daily. Ell.9 - Does not apply lansoprazole (PREVACID) [address] capsule Take 1 capsule (30 mg total) by mouth 1 (one) time each day. Do not crush or chew. 90 each 3 lisinopriL (PRINIVIL,ZESTRIL) 5 mg tablet TAKE 1 TABLET BY MOUTH EVERY DAY 90 tablet 1 loratadine (CLARITIN) 10 mg tablet Take 1 tablet (10 mg total) by mouth 1 (one) time each day. metFORMIN XR (GLUCOPHAGE-XR) 500 mg 24 hr tablet TAKE 1 TABLET BY MOUTH TWICE A DAY 180 tablet 1 mv-min/iron/folic/calcium/vitK (WOMEN'S MULTIVITAMIN ORAL) Take by mouth. omega-3 acid ethyl esters (LOVAZA) 1 gram capsule Take by mouth. [employer] Ultra Test test strip USE TO TEST BLOOD SUGAR ONCE A DAY 100 strip 3 [email or web address] Ultra2 Meter misc 1 each by Other route 1 (one) time. UNABLE TO FIND Take 1,000 mg by mouth. Zbvwdbu-Hmxtyywmo-Shivdyt D (CALCIUM 500 OR) No current facility-administered medications on file prior to visit. Allergies: is allergic to omeprazole magnesium. Precautions: Stay below pain threshold. Fall risk: No SUBJECTIVE Subjective Report: My shoulder- is going pretty good. I'm getting better, it's not really painful anymore. Chart Reviewed: Yes Pain: (R) shoulder 0/10. A little discomfort only. OBJECTIVE TREATMENT INTERVENTION: UBE 3x3 Seated un weighted Overhead pulleys for R sh Flexion and Scaption x 3 sets of 10 on each side. Seated (R) shoulder flex/scaption/abd table slide with arm on foam roll x 10 each with 10 sec holds.. to HEP Manual Therapy: Supine R sh A->P posterior glides, grade 4, 3 bouts of 30 seconds. Seated inferior Glides to R GH joint w/ R UE ext'd, add'd and IR'd. Grade 4, 3 bouts x 30 seconds AROM w/ stretch btw bouts. HEP: Low Pec stretch in doorframe. 06/19, scap row, shld ext and ER ASSESSMENT/Response to Treatment Good, pt demonstrated 15 degree increase in R shoulder flexion and 2 level improvement in Apley's comb'd IR after today's treatment. Patient Education: Education provided: Yes Education Provided To: Patient utilizing Explanation mode(s) of education Response to Education: Applied Knowledge PLAN POC Development/Review: No Change in the Plan of Care; Participants: Patient Total Treatment Time: 30 Modalities: Therapeutic procedures: Therex: 17 minutes. Manual Therapy: 8 minutes. RX time 30 minutes. Documentation completed by Alejandro Nieto PT documented in this encounter Plan of Treatment Upcoming Encounters Date Type Department Care Team (Late st Contact Info) Description 07/13/2025 10:00 AM EDT Treatment Outpatient Rehabilitation - [address] [phone] Alejandro Nieto, AMANDA 07/20/2025 12:30 PM EDT Treatment Outpatient Rehabilitation - [address] [phone] Alejandro Nieto, PT 07/21/2025 9:00 AM EDT Office Visit Orthopedic Surgery [facility] 160 175 [facility] 160 [place] [phone] Analia Moran, PA [address] [place], [place] 07/27/2025 8:30 AM EDT Office Visit Orthopedic Surgery [facility] 250 175 [facility] 250 [place] [phone] Emiliano Bennett, DPM [address] [place], [place] 09/25/2025 4:00 PM EST Office Visit Adult Medicine [address] [phone] Tone Valadez MD [address] [place] [address] 11/15/2025 8:00 AM EST Office Visit Endocrinology [address] [phone] Farrah Giles PA [address] [place] [address] documented as of this encounter Goals Goal [...] final HEP. documented as of this encounter Visit Diagnoses Diagnosis Glenohumeral arthritis, right- Primary documented in this encounter Additional Health Concerns Assessment Noted Time PHQ-9 Depression Total Score: 0 04/17/20 25 2:01 PM EDT documented as of this encounter Care Teams Screw Machine Hand Relationship Specialty Start Date End Date Tone Valadez MD [address] [place] [address] PCP - General Internal Medicine 06/13/20 documented as of this encounter
--- OUTSIDE RECORDS SUMMARY | 2025-07-05 16:50 | XMS_ITS | Clinical Summary ---
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 3 Active hydrocortisone 1 % topical cream 3 Active clotrimazole (LOTRIMIN) 1 % cream 2 Active mv-min/iron/foli c/calcium/vitK (WOMEN'S MULTIVITAMIN ORAL) Take by mouth. Active omega-3 acid ethyl esters (LOVAZA) 1 gram capsule Take by mouth. Active UNABLE TO FIND Take 1,000 mg by mouth. Calcium-Magne sium-Vitamin D (CALCIUM 500 OR) Active lancets (OneTouch Delica Plus Lancet) 33 gauge 1 Each by Does not apply route daily. Ell.9 - Does not apply Active OneTouch Ultra2 Meter misc 1 each by Other route 1 (one) time. 4 Active metFORMIN XR (GLUCOPHAGE-XR) 500 mg 24 hr tablet TAKE 1 TABLET BY MOUTH TWICE A DAY 180 tablet 1 5 Active lisinopriL (PRINIVIL,ZESTRI L) 5 mg tablet TAKE 1 TABLET BY MOUTH EVERY DAY 90 tablet 1 5 Active ketoconazole (NIZORAL) 2 % cream Apply topically 1 (one) time each day. 30 g 2 5 Active OneTouch Ultra Test test strip USE TO TEST BLOOD SUGAR ONCE A DAY 100 strip 3 5 Active lansoprazole (PREVACID) [address] capsule Take 1 capsule (30 mg total) by mouth 1 (one) time each day. Do not crush or chew. 90 each 3 5 026 Active fluticasone propionate (FLONASE) 50 mcg/actuation nasal spray 4 025 Discontinu ed(Discont inued by another clinician) Active Problems Problem Noted Date Diagnosed Date Thyroid nodule 09/27/2024 Hypertension 08/12/2024 Microalbuminuria 06/04/2019 Obesity (BMI 30.0-34.9) 06/04/2019 Osteoporosis 11/22/2017 Overview (08/12/2024): T score -3.2 lumbar spine, 11/18/2017. 06/2020 T score spine -1.6 hip -3.0 Type II diabetes mellitus wi th renal manifestations ([facility] V24, [facility] V28) 2017 Hyperlipidemia 10/20/2017 Overview (08/12/2024): Total cholesterol 217 and LDL cholesterol 130, 07/11/2016 Adjustment disorder with mixed emotional feature s 05/29/2017 Allergic rhinitis 07/11/2016 Encounters Date Type Department Care Team Description 07/05/2025 9:30 AM EDT Treatment Outpatient Rehabilitation - [address] [phone] Alejandro Nieto, PT Glenohumeral arthritis, right (Primary Dx) 06/21/2025 1:30 PM EDT - 06/21/2025 11:59 PM EDT Hospital Encounter Radiology Department - [address] [phone] Leg swelling Discharge Disposition: Home or Self Care 06/19/2025 11:30 AM EDT Office Visit [facility] - [address] [phone] Linda Bernal, REBECCA Leg swelling (Primary Dx); Left hip pain; Muscle pain 06/19/2025 8:30 AM EDT Treatment Outpatient Rehabilitation - [address] [phone] Parminder Velez, PETROLEUM GEOLOGIST Glenohumeral arthritis, right (Primary Dx) 06/15/2025 8:00 AM EDT Office Visit Endocrinology - [address] [phone] Dinora Zamudio PA Osteoporosis, unspecified osteoporosis type, unspecified pathological fracture presence (Primary Dx); Type 2 diabetes mellitus with diabetic microalbuminuria, without long-term current use of insulin ([facility] V24, [facility] V28); Thyroid nodule 06/15/2025 Nurse Triage [facility] - [address] [phone] Tone Valadez MD 06/12/2025 8:30 AM EDT Treatment Outpatient [facility] - [address] [phone] Parminder Velez, PETROLEUM GEOLOGIST Glenohumeral arthritis, right (Primary Dx) 06/09/2025 9:00 AM EDT Treatment Outpatient [facility] - [address] [phone] Alejandro Nieto, PT Glenohumeral arthritis, right (Primary Dx) 06/05/2025 8:30 AM EDT Treatment Outpatient Rehabilitation - [address] [phone] Parminder Velez, PETROLEUM GEOLOGIST Glenohumeral arthritis, right (Primary Dx) 06/01/2025 Telephone Gastroenterology - [place] 175 [facility] 175 [facility] 200 [place] [address] Kimani Jalloh MD 05/29/2025 8:30 AM EDT Treatment Outpatient Rehabilitation - [place] [phone] Parminder Velez, PETROLEUM GEOLOGIST Glenohumeral arthritis, right (Primary Dx) 05/26/2025 8:30 AM EDT Treatment Outpatient Rehabilitation - [address] [phone] Parminder Velez, PETROLEUM GEOLOGIST Glenohumeral arthritis, right (Primary Dx) 05/22/2025 8:30 AM EDT Treatment Outpatient Rehabilitation - [address] [phone] Parminder Velez, PETROLEUM GEOLOGIST Glenohumeral arthritis, right (Primary Dx) 05/18/2025 8:30 AM EDT Treatment Outpatient Rehabilitation - [address] [phone] Jennifer Sainz, PETROLEUM GEOLOGIST Glenohumeral arthritis, right (Primary Dx); Rotator cuff syndrome of right shoulder; Chronic pain of both shoulders 05/15/2025 8:30 AM EDT Treatment Outpatient [facility] - [address] [phone] Parminder Velez, PETROLEUM GEOLOGIST Glenohumeral arthritis, right (Primary Dx) 05/15/2025 Telephone Endocrinology - [address] [phone] Graciela Smith RN 05/11/2025 11:00 AM EDT Evaluation Outpatient Rehabilitation - [address] [phone] Alejandro Nieto, PT Glenohumeral arthritis, right (Primary Dx); Rotator cuff syndrome of right shoulder; Chronic pain of both shoulders 05/05/2025 9:20 AM EDT Ancillary Procedure Orthopedic Surgery - [place] [address] [phone] 05/05/2025 9:00 AM EDT Procedure visit Orthopedic Surgery [facility] [address] [phone] Jessy Ervin MD Arthritis of right shoulder region (Primary Dx) 04/24/2025 9:30 AM EDT Office Visit Orthopedic [facility] 250 175 [facility] 250 [place] [phone] Emiliano Bennett DPM Hammer toe of left foot (Primary Dx); Dermatophytosis of nail; Pain in toe of right foot; Pain in toe of left foot; Diabetic mononeuropathy simplex ([facility] V24, [facility] V28); Type II diabetes mellitus with peripheral circulatory disorder ([facility] V24, [facility] V28); Acquired hammer toe of right foot 04/17/2025 2:00 PM EDT Office Visit Adult Medicine [address] [phone] Tone Valadez MD Primary hypertension (Primary Dx); Type 2 diabetes mellitus with diabetic microalbuminuria, without long-term current use of insulin ([facility] V24, [facility] V28); Pure hypercholesterolemia 04/17/2025 8:30 AM EDT Office Visit Orthopedic Surgery [facility] 160 175 [facility] 160 [place] [phone] Analia Moran PA Glenohumeral arthritis, right (Primary Dx); Rotator cuff syndrome of right shoulder; Chronic pain of both shoulders 04/04/2025 8:20 AM EDT Office Visit Endocrinology [address] [phone] Farrah Giles PA Type 2 diabetes mellitus with diabetic microalbuminuria, without long-term current use of insulin ([facility] [place]24, [facility] V28) (Primary Dx); Osteoporosis, unspecified osteoporosis type, unspecified pathological fracture presence; Post-menopausal; Screening for thyroid disorder from Last 3 Months Immunizations Name Administration [...] exam. (report in voice recognition folder on [employer] [address].) ESOPHAGOGASTRODUODENOSCOPY 11/24/2022 PROCEDURE: TN EGD TRANSORAL BIOPSY SINGLE/MULTIPLE; COMMENT: Manzo's esophagus, [...] for your loved ones. For example, child care giver or elderly care for an older adult? [...] Orientation Straight 04/16/2025 9: 02 PM EDT Obstetrics History Last Filed Vital Signs Vital Sign Reading Time Taken Comments Blood Pressure 112/62 06/19/2025 11:22 AM EDT Pulse 102 06/19/2025 11:22 AM EDT Temperature 35.7 C (96.3 F) 06/19/2025 11:22 AM EDT Respiratory Rate 16 06/19/2025 11:22 AM EDT Oxygen Saturation 97% 06/19/2025 11:22 AM EDT Inhaled Oxygen Concentration - - Weight 73.6 kg (162 lb 4.8 oz) 06/19/2025 11:22 AM EDT Height 153.7 cm (5' 0.5 ) 06/19/2025 11:22 AM ED T Body Mass Index 31.18 06/19/2025 11:22 AM EDT Plan of Treatment Upcoming Encounters Date Type Department Care Team (Late st Contact Info) Description 07/13/2025 10:00 AM EDT Treatment Outpatient Rehabilitation - [address] [phone] Alejandro Nieto, PT 07/20/2025 12:30 PM EDT Treatment Outpatient Rehabilitation - [address] [phone] Alejandro Nieto, PT 07/21/2025 9:00 AM EDT Office Visit Orthopedic [facility] [address] [place] [address] [place] [phone] Analia Moran PA [address] [place] [phone] 07/27/2025 8:30 AM EDT Office Visit Orthopedic Surgery [facility] [address] [place] [phone] Emiliano Bennett, DPJolene [address] [place] [phone] 09/25/2025 4:00 PM EST Office Visit Adult Medicine [address] [phone] Tone Valadez MD [address] [place] [address] 11/15/2025 8:00 AM EST Office Visit Endocrinology [address] [phone] Farrah Giles PA [address] [place] [address] Health Maintenance Due Date Last Done Comments Diabetes: Annual Foot Exam 1960 RSV Immunization Adult Patients (1 - Risk 60-74 years 1-dose series) 2010 Falls Risk Assessment 10/18/2022 Medicare Annual Wellness Visit 10/18/2022 COVID-19 Vaccine ( season) 2024 03/01/2024, 07/31/2023, 12/04/2022, Additional history exists Diabetes: Annual Retina Eye Exam 11/23/2024 11/23/2023 Breast Cancer Screening 01/20/2025 01/21/20 23, 01/11/2022, 11/23/2019, Additional history exists Influenza Vaccine (#1) 2025 , 08/16/2021, 09/30/2020, Additional history exists Diabetes: Annual Urine Albumin-Creatinine Ratio (uACR) 09/26/2025 09/26/2024, 09/21/2023 Diabetes: Blood Sugar Control Test (HGBA1C) 10/01/2025 03/31/2025, 10/11/2024, 09/12/2024, Additional history exists Diabetes: Annual GFR (Glomerular Filtration Rate) 03/31/2026 03/31/2025, 09/26/2024, 09/21/2023 Hypertension/CHF/CAD Annual BMP Blood Test 03/31/2026 03/31/2025, 09/26/2024, 09/21/2023 Social Influencers of Health Screening 04/17/2026 04/17/2025 Colorectal Cancer Screening: Colonoscopy 12/14/2027 12/14/2017 Cholesterol Screening (Lipid Panel) 09/26/2029 09/26/2024, 09/21/2023 DTaP,Tdap,and Td Vaccines (5 - Td or Tdap) 11/18/2029 11/18/2019, 01/11/2018, 07/08/2001, Additional history exists Osteoporosis Screening (Bone Density Screening) 03/30/2035 03/30/2025, 08/26/2022, 07/02/2020, Additional history exists Hepatitis C Screening Completed 07/11/2016 Pneumococcal Vaccine: 50+ Years Completed 10/20/2017, 07/11/2016 Zoster Vaccines Completed 04/09/2023, 12/23/2022 Depression Screening Completed 04/17/2025 HIB Vaccines Aged Out No longer eligi [...] age to complete this topic Meningococcal B Vaccine Aged Out No l onger eligible based on patient's age to complete this topic RSV Immunization Patients Under 20 months Aged Out No longer eligible based on patient's age to complete this topic Varicella Vaccines Aged Out No longer eligible based on patient's age to complete this topic Goals Goal Patient Goal Type Associated Problems Recent Progress Patient-Stated? Author STG's 6 visits General Yes Alejandro Nieto, PT Note: Pt will demonstrate active R [...] (Met) LTG's 12 visits General Yes Alejandro Nieto, AMANDA Note: Pt will demonstrate active R shoulder [...] be Independent and compliant with final HEP. Procedures Procedure Name Priority Date/Time Associated Diagnosis Comments VAS US DUPLEX LOWER EXT VENOUS BILAT STAT 06/21/2025 1:59 PM EDT Leg swelling US ARTHROCENTESIS ASP INJ JOINT MAJOR RIGHT Routine 05/05/2025 9:16 AM EDT Arthritis of right shoulder region TN ARTHROCENTESIS/ASPIRA TION/INJECTION MAJOR JOINT/BURSA W/O U/S GUIDANCE Routine 05/05/2025 9:00 AM EDT Arthritis of right shoulder region TN PROTEIN ELECTROPHORETIC FRACTIONATION & QUANTITATION SERUM Routine 04/04/2025 9:19 AM EDT Osteoporosis, unspecified osteoporosis type, unspecified pathological fracture presence PROTEIN, TOTAL Routine 04/04/2025 9:19 AM EDT Osteoporosis, unspecified osteoporosis type, unspecified pathological fracture presence PARATHYROID HORMONE INTACT Routine 04/04/2025 9:19 AM EDT Osteoporosis, unspecified osteoporosis type, unspecified pathological fracture presence PHOSPHORUS Routine 04/04/2025 9:19 AM EDT Osteoporosis, unspecified osteoporosis type, unspecified pathological fracture presence PROTEIN ELECTROPHORESIS, SERUM Routine 04/04/2025 9:19 AM EDT Osteoporosis, unspecified osteoporosis type, unspecified pathological fracture presence VITAMIN D 25 HYDROXY Routine 04/04/2025 9:19 AM EDT Osteoporosis, unspecified osteoporosis type, unspecified pathological fracture presence COMPLETE BLOOD COUNT Routine 04/04/2025 9:19 AM EDT Type 2 diabetes mellitus with diabetic microalbuminuria, without long-term current use of insulin ([facility] V24, [facility] V28) THYROID STIMULATING HORMONE Routine 04/04/2025 9:19 AM EDT Screening for thyroid disorder BASIC METABOLIC PANEL Routine 03/31/2025 2:45 PM EDT Type 2 diabetes mellitus with diabetic microalbuminuria, without long-term current use of insulin ([facility] V24, [facility] V28) HEMOGLOBIN A1C Routine 03/31/2025 2:45 PM EDT Type 2 diabetes mellitus with diabetic microalbuminuria, without long-term current use of insulin ([facility] V24, [facility] V28) BD BONE DENSITY DXA AXIAL SKELETON Routine 03/30/2025 10:18 AM EDT Osteoporosis, unspecified osteoporosis type, unspecified pathological fracture presence MICROALBUMIN CREATININE URINE RATIO Routine 09/26/2024 9:57 AM EST Type 2 diabetes mellitus with other diabetic kidney complication, without long-term current use of insulin ([facility] V24, [facility] V28) LIPID PANEL WITH REFLEX TO DIRECT LDL Routine 09/26/2024 9:57 AM EST Pure hypercholesterolemia DIABETES EYE EXAM Routine 11/23/2023 SCREENING MAMMOGRAPHY BI 2-VIEW BREAST INC CAD Routine 01/20/2023 9:31 AM EDT Encounter for screening mammogram for malignant neoplasm of breast COLONOSCOPY Routine 12/14/2017 HEPATITIS C SCREENING Routine 07/11/2016 from Last 3 Months or Most Recently Relevant to Health Maintenance Results * Vascular US duplex lower extremity [...] Signed Date: 06/21/2025 16:20 ET Workstation ID: [id number] Transcribed By: Self Edit Transcribed Date: 06/21/2025 [...] Signed Date: 06/21/2025 16:20 ET Workstation ID: [id number] Transcribed By: Self Edit Transcribed Date: 06/21/2025 16:19 ET us Linda Bernal NP CV VASCULAR PROCEDURES Final Result * US Arthrocentesis Asp Inj Joint Major Right (05/05/2025 9:16 AM EDT) Anatomical Region Laterality Modality Extremity Right Ultrasound Narrative 05/05/2025 9:40 AM EDT PROCEDURE Right glenohumeral injection for osteoarthritis. Risk including infection, post-injection steriod flare, hypopigmentation, neurovascular injury and fat atrophy, were thoroughly discussed with the patient. The patients understood the risks and gave verbal consent for the procedure. The posteriorlateral shoulder was prepped with Chloro-prep after anatomical landmarks where palpated and visualized with ultrasound. Ethyle chloride was used as to topical anesthetic. Then using a 23-gauge 3-1/2 inch needle lidocaine 2 mL was used as a local anesthetic. Kenalog 40 mg and lidocaine 3 cc were injected into the joint using sterile technique under ultrasound guidance without complications. The patient tolerated the procedure well. Aftercare was thoroughly discussed with the patient. Images were recorded and will permanently stored in patients medical record. us Jessy Ervin MD IMG US PROCEDURES Final Result * TN ARTHROCENTESIS/ASPIRATION/INJECTION MAJOR JOINT/BURSA W/O U/S GUIDANCE (05/05/2025 9:00 AM EDT) Narrative Jessy Ervin MD - 05/05/2025 9:00 AM EDT Jessy Ervin MD 05/05/2025 9:40 AM L Inj/Asp: R glenohumeral Indications: pain Details: 22 G needle, posterior approach (guidance: US guided ) Medications: 3 mL lidocaine 1 %; 40 mg triamcinolone acetonide 40 mg/mL Outcome: tolerated well, no immediate complications Informed Consent: Laterality: Right Relevant images/test results available and reviewed: yes Health status cleared: Yes Procedure/treatment, purpose, treatment alternatives, risks/potential complications and benefits explained: yes Risk/complications/benefits details: Risks include bleeding, infection, increasing pain Patient questions answered: yes Patient agrees, verbalizes understanding, and wants to proceed: yes Consent given by: Patient Informed consent discussion completed by Physician/DONNA with patient: Verbal Pre-procedure timeout performed: yes Jessy Ervin MD IN CLINIC/BEDSIDE ORDERABLES F inal Result * PATHOLOGIST REVIEW PROTEIN ELECTROPHORESIS (04/04/2025 9:19 AM EDT) Pathologist Interpretation Reviewed by Yesenia Santacruz MD 04/10/2025 9:16 AM EDT [facility] Blood Venous blood specimen / Unknown Venipuncture / Unknown 04/04/2025 9:19 AM EDT 04/04/2025 9:19 AM EDT Farrah MCKEON LAB BLOOD ORDERABLES Final Resul t Performing Organization Address City/[facility]/ZIP Co de Phone Number [facility] [address] [place] [address], [place] [phone] * Vitamin D 25 hydroxy (04/04/2025 9:19 AM EDT) Vit D, 25-Hydroxy 33.8 30.0 - 80.0 ng/mL LAB CHEMISTRY METHOD 04/04/2025 3:51 PM EDT [facility] Blood Venous blood specimen / Unknown Venipuncture / Unknown 04/04/2025 9:19 AM EDT 04/04/2025 9:19 AM EDT Farrah MCKEON LAB BLOOD ORDERABLES Final Resul t Performing Organization Address City/[facility]/ZIP Co de Phone Number [facility] [address] [place] [address], [place] [phone] * (ABNORMAL) Complete blood count (04/04/2025 9:19 AM EDT) [facility] WBC 7.6 4.8 - 10.8 K/mcL LAB HEMETOLOGY METHOD 04/04/2025 10:[address] [facility] RBC 3.80 3.80 - 4.80 M/mcL LAB HEMETOLOGY METHOD 04/04/2025 10:[address] [facility] Hemoglobin 12.2 11.5 - 16.0 g/dL LAB HEMETOLOGY METHOD 04/04/2025 10:[address] [facility] Hematocrit 37.1 35.0 - 47.0 % LAB HEMETOLOGY METHOD 04/04/2025 10:[address] [facility] MCV 98.9(H) 79.0 - 98.0 FL LAB HEMETOLOGY METHOD 04/04/2025 10:[address] [facility] MCH 32.5(H) 27.0 - 32.0 pcg LAB HEMETOLOGY METHOD 04/04/2025 10:[address] [facility] MCHC 32.9 32.0 - 37.0 g/dL LAB HEMETOLOGY METHOD 04/04/2025 10:[address] [facility] RDW 12.7 11.0 - 15.0 % LAB HEMETOLOGY METHOD 04/04/2025 10:[address] [facility] Platelets 174 130 - 400 K/mcL LAB HEMETOLOGY METHOD 04/04/2025 10:[address] [facility] MPV 10.4 7.0 - 11.0 FL LAB HEMETOLOGY METHOD 04/04/2025 10:[address] [facility] NRBC 0.0 <1.0 % LAB HEMETOLOGY METHOD 04/04/2025 10:42 AM EDT [facility] NRBC Absolute 0.00 <0.10 K/mcL LAB HEMETOLOGY METHOD 04/04/2025 10:42 AM EDT [facility] Blood Venous blood specimen / Unknown Venipuncture / Unknown 04/04/2025 9:19 AM EDT 04/04/2025 9:19 AM EDT Farrah MCKEON LAB BLOOD ORDERABLES Final Resul t Performing Organization Address City/[facility]/ZIP Co de Phone Number [facility] [address] [place] [address], [place] [phone] * Thyroid stimulating hormone (04/04/2025 9:19 AM EDT) TSH 2.92 0.40 - 4.00 mcIU/mL LAB CHEMISTRY METHOD 04/04/2025 3:52 PM EDT [facility] Blood Venous blood specimen / Unknown Venipuncture / Unknown 04/04/2025 9:19 AM EDT 04/04/2025 9:19 AM EDT Farrah MCKEON LAB BLOOD ORDERABLES Final Resul t Performing Organization Address [facility] Co de Phone Number [facility] [address] [place] [address], [place] [phone] * Protein electrophoresis, serum (04/04/2025 9:19 AM EDT) Total Protein 6.6 6.0 - 8.0 g/dL LAB CHEMISTRY METHOD 04/10/2025 9:16 AM EDT [facility] Albumin, Serum 3.5 2.9 - 4.1 g/dL LAB CHEMISTRY METHOD 04/10/2025 9:16 AM EDT [facility] Alpha 1 Globulin (g/dL) 0.2 0.1 - 0.5 g/dL LAB CHEMISTRY METHOD 04/10/2025 9:16 AM EDT [facility] Alpha 2 Globulin (g/dL) 1.2 0.7 - 1.5 g/dL LAB CHEMISTRY METHOD 04/10/2025 9:16 AM EDT [facility] Beta (g/dL) 1.1 0.7 - 1.5 g/dL LAB CHEMISTRY METHOD 04/10/2025 9:16 AM EDT [facility] Gamma Globulin (g/dL) 0.7 0.7 - 1.9 g/dL LAB CHEMISTRY METHOD 04/10/2025 9:16 AM EDT [facility] SPEP Interpretation No M-Greg seen. Essentially normal pattern. LAB CHEMISTRY METHOD 04/10/2025 9:16 AM EDT [facility] Blood Venous blood specimen / Unknown Venipuncture / Unknown 04/04/2025 9:19 AM EDT 04/04/2025 9:19 AM EDT Farrah MCKEON LAB BLOOD ORDERABLES Final Resul t Performing Organization Address City/[facility]/ZIP Co de Phone Number [facility] [address] [place] [address], [place] [phone] * Protein, total (04/04/2025 9:19 AM EDT) Total Protein 6.6 6.0 - 8.0 g/dL LAB CHEMISTRY METHOD 04/04/2025 2:45 PM EDT [facility] Blood Venous blood specimen / Unknown Venipuncture / Unknown 04/04/2025 9:19 AM EDT 04/04/2025 9:19 AM EDT us Farrah MCKEON LAB BLOOD ORDERABLES Final Resul t Performing Organization Address City/[facility]/ZIP Co de Phone Number [facility] [address] [place] [address], [place] [phone] * Phosphorus (04/04/2025 9:19 AM EDT) Phosphorus 3.2 2.5 - 4.5 mg/dL LAB CHEMISTRY METHOD 04/04/2025 2:37 PM EDT [facility] Blood Venous blood specimen / Unknown Venipuncture / Unknown 04/04/2025 9:19 AM EDT 04/04/2025 9:19 AM EDT Farrah MCKEON LAB BLOOD ORDERABLES Final Resul t Performing Organization Address City/[facility]/ZIP Co de Phone Number [facility] [address] [place] [address], [place] [phone] * Parathyroid hormone intact (04/04/2025 9:19 AM EDT) PTH 41.2 18.5 - 88.0 pcg/mL LAB CHEMISTRY METHOD 04/04/2025 5:04 PM EDT [facility] Blood Venous blood specimen / Unknown Venipuncture / Unknown 04/04/2025 9:19 AM EDT 04/04/2025 9:19 AM EDT Farrah MCKEON LAB BLOOD ORDERABLES Final Resul t Performing Organization Address City/[facility]/ZIP Co de Phone Number [facility] [address] [place] [address], [place] [phone] * Hemoglobin A1c (03/31/2025 2:45 PM EDT) Hemoglobin A1C 6.1 <6.5 % LAB CHEMISTRY METHOD 04/02/2025 1:05 PM EDT [facility] Mean Bld Glu Estim. 128 mg/dL LAB CHEMISTRY METHOD 04/02/2025 1:05 PM EDT [facility] Blood Venous blood specimen / Unknown Venipuncture / Unknown 03/31/2025 2:45 PM EDT 03/31/2025 2:45 PM EDT us Farrah MCKEON LAB BLOOD ORDERABLES Final Resul t [facility] [address] [place] [address], * (ABNORMAL) Basic metabolic panel (03/31/2025 2:45 PM EDT) Sodium 138 133 - 145 mmol/L LAB CHEMISTRY METHOD 03/31/2025 7:[address] [facility] Potassium 4.6 3.5 - 5.5 mmol/L LAB CHEMISTRY METHOD 03/31/2025 7:[address] [facility] Chloride 107 96 - 110 mmol/L LAB CHEMISTRY METHOD 03/31/2025 7:[address] [facility] CO2 22 21 - 32 mmol/L LAB CHEMISTRY METHOD 03/31/2025 7:[address] [facility] Anion Gap 9 3 - 11 LAB CHEMISTRY METHOD 03/31/2025 7:[address] [facility] Glucose 153(H) 70 - 100 mg/dL LAB CHEMISTRY METHOD 03/31/2025 7:[address] [facility] BUN 27(H) 5 - 25 mg/dL LAB CHEMISTRY METHOD 03/31/2025 7:[address] [facility] Creatinine 0.71 0.50 - 1.10 mg/dL LAB CHEMISTRY METHOD 03/31/2025 7:[address] [facility] eGFR 89 >=60 mL/min/1. 73m2 LAB CHEMISTRY METHOD 03/31/2025 7:[address] [facility] Comment:Calculation based on the Chronic Kidney Disease Epidemiology Collaboration (CKD-EPI) equation refit without adjustment for race. BUN/Creatinine Ratio 38.0 LAB CHEMISTRY METHOD 03/31/2025 7:[address] [facility] Calcium 9.8 8.5 - 10.5 mg/dL LAB CHEMISTRY METHOD 03/31/2025 7:00 PM EDT [facility] Blood Venous blood specimen / Unknown Venipuncture / Unknown 03/31/2025 2:45 PM EDT 03/31/2025 2:45 PM EDT us Farrah MCKEON LAB BLOOD ORDERABLES Final Resul t [facility] [address] [place] [address], [place] [phone] * BD Bone Density DXA Axial Skeleton (03/30/2025 10:18 AM EDT) Anatomical Region Laterality Modality Wrist, Hip, L-spine Bone Densito metry 03/30/2025 9:33 PM EDT Impressions 03/30/2025 9:34 PM EDT Osteoporosis. The NOF guidelines recommend that FDA approved medical therapies be considered in postmenopausal women and men age >50 years with a: i. Hip or vertebral (clinical or morphometric) fracture ii. T score of < -2.5 at the spine or hip iii. 10 year fracture probability by FRAX of >3% for hip fracture, or >20% for major osteoporotic fracture PLEASE NOTE: W.H.O. classification is based on lowest measured density at the spine, femoral neck, or total hip.This classification has prognostic significance when applied to post menopausal women and older men. 1) The World Health Organization defines low BMD as follows: T-score Normal at or > -1 Osteopenia < -1 and > -2.5 Osteoporosis at or < -2.5 without fractures Established osteoporosis < -2.5 with fractures -------- FINAL REPORT -------- Dictated By: Oleg Casarez Dictated Date: 03/30/2025 21:33 ET Assigned Physician: Oleg Casarez Reviewed and Electronically Signed By: Oleg Casarez Signed Date: 03/30/2025 21:34 ET Workstation ID: [id number] Transcribed By: Self Edit Transcribed Date: 03/30/2025 21:33 ET Narrative 03/30/2025 9:34 PM EDT Clinical history: osteoporosis Scans of the lumbar spine and hips were performed on a [employer] fan beam bone densitometer. Bone mineral density measurements and associated T and Z scores respectively are as follows: Lumbar Spine: L1-L4 BMD: 0.820 g/cm2 T-Score: -2.1 Z-Score: 0.3 Compared with the prior study dated 08/26/2022, the BMD reading has decreased which is statistically significant Left Proximal Femur: Neck BMD: 0.461 g/cm2 T-Score: -3.5 Z-Score: -1.4 Total BMD: 0.792 g/cm2 T-Score: -1.2 Z-Score: 0.5 Compared with the prior study the mean BMD reading in the total left hip has decreased which is not statistically significant Compared with standards for the young adult, lowest measured bone density places the patient in the W.H.O. osteoporotic range. Procedure Note Oleg Casarez MD - 03/30/2025 Clinical history: osteoporosis Scans of the lumbar spine and hips were performed on a [employer] beam bone densitometer. Bone mineral density measurements and associated T and Z scoresrespectively are as follows: Lumbar Spine: L1-L4 BMD: 0.820 g/cm2 T-Score: -2.1 Z-Score: 0.3 Compared with the prior study dated 08/26/2022, the BMD reading hasdecreased which is statistically significant Left Proximal Femur: Neck BMD: 0.461 g/cm2 T-Score: -3.5 Z-Score: -1.4 Total BMD: 0.792 g/cm2 T-Score: -1.2 Z-Score: 0.5 Compared with the prior study the mean BMD reading in the total left hiphas decreased which is not statistically significant Compared with standards for the young adult, lowest measured bone densityplaces the patient in the W.H.O. osteoporotic range. IMPRESSION: Osteoporosis. The NOF guidelines recommend that FDA approved medical therapies beconsidered in postmenopausal women and men age >50 years with a: i. Hip or vertebral (clinical or morphometric) fracture ii. T score of < -2.5 at the spine or hip iii. 10 year fracture probability by FRAX of >3% for hip fracture, or >20%for major osteoporotic fracture PLEASE NOTE: W.H.O. classification is based on lowest measured density at the spine,femoral neck, or total hip.This classification has prognostic significancewhen applied to post menopausal women and older men. 1) The World Health Organization defines low BMD as follows: T-score Normal at or > -1 Osteopenia < -1 and > -2.5 Osteoporosis at or < -2.5 withoutfractures Established osteoporosis < -2.5 with fractures -------- FINAL REPORT -------- Dictated By: Oleg Casarez Dictated Date: 03/30/2025 21:33 ET Assigned Physician: Oleg Casarez Reviewed and Electronically Signed By: Oleg Casarez Signed Date: 03/30/2025 21:34 ET Workstation ID: [id number] Transcribed By: Self Edit Transcribed Date: 03/30/2025 21:33 ET Farrah MCKEON IM DXA PROCEDURES Final Result * (ABNORMAL) Lipid panel with reflex to direct LDL (09/26/2024 9:57 AM EST) Cholesterol 196 0 - 200 mg/dL LAB CHEMISTRY METHOD 09/26/2024 3:04 PM [facility] Triglycerides 234(H) 0 - 150 mg/dL LAB CHEMISTRY METHOD 09/26/2024 3:04 PM [facility] HDL 47 >=40 mg/dL LAB CHEMISTRY METHOD 09/26/2024 3:04 PM [facility] LDL Calculated 102(H) 0 - 100 mg/dL LAB CHEMISTRY METHOD 09/26/2024 3:04 PM [facility] VLDL Cholesterol Sammy 46.8 mg/dL LAB CHEMISTRY METHOD 09/26/2024 3:04 PM [facility] Non HDL Chol. (LDL+VLDL) 149(H) <145 mg/dL LAB CHEMISTRY METHOD 09/26/2024 3:04 PM [facility] Chol/HDL Ratio 4.2 0.0 - 4.4 LAB CHEMISTRY METHOD 09/26/2024 3:04 PM EST [facility] Blood Venous blood specimen / Unknown Venipuncture / Unknown 09/26/2024 9:57 AM EST 09/26/2024 9:57 AM EST us Tone Valadez MD LAB BLOOD ORDERABLES Final Resu lt Performing Organization Address City/[facility]/ZIP Co de Phone Number [facility] [address] [place] [address], [place] [phone] * Microalbumin creatinine urine ratio (09/26/2024 9:57 AM EST) Pathologist [facility] Creatinine, Urine 58.0 mg/dL LAB CHEMISTRY METHOD 09/26/2024 3:56 PM EST [facility] Microalb, Ur 15.8 0.0 - 29.0 mg/L LAB CHEMISTRY METHOD 09/26/2024 3:56 PM EST [facility] Microalb/Creat Ratio 27 <30 mg/g creat LAB CHEMISTRY METHOD 09/26/2024 3:56 PM EST [facility] Urine Urine specimen obtained by clean catch procedure / Unknown Non-blood Collection / Unknown 09/26/2024 9:57 AM EST 09/26/2024 9:57 AM EST us Tone Valadez MD LAB URINE ORDERABLES Final Resu lt Performing Organization Address City/[facility]/ZIP Co de Phone Number [facility] [address] [place] [address], [place] [phone] * Hm Diabetes Eye Exam (11/23/2023) [facility] Diabetes: Annual Retina Eye Exam abstracted us Ray Frost MD HEALTH MAINTENANCE Final Result * SCREENING MAMMOGRAPHY [...] typically benign parenchymal asymmetries IMPRESSION: : 1. 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
== END 2025-07-05 15:41 | disposition home or self-care (01) ==
LOC: HO.HMGAL 15:39
PROVIDERS: PCP Internal Medicine; Visit Provider Registered Nurse Emergency
DX: J30.89 Other allergic rhinitis (principal)
CPT/HCPCS: 95117; 95165

== ENCOUNTER 2025-07-12 15:28 | Outpatient (AMB) | payer MEDICARE, SELFPAY | END 2025-07-12 15:29 | disposition home or self-care (01) | LOC: HO.HMGAL 15:28 | PROVIDERS: Absent Provider Registered Nurse Emergency; PCP Internal Medicine; Visit Provider Registered Nurse Emergency | DX: J30.89 Other allergic rhinitis (principal) | CPT/HCPCS: 95117; 95165 ==

== ENCOUNTER 2025-07-19 11:32 | Outpatient (AMB) | payer MEDICARE, SELFPAY ==
--- OUTSIDE RECORDS SUMMARY | 2025-07-19 14:42 | XMS_ITS | Clinical Summary ---
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 09/03/20 23 Active hydrocortisone 1 % topical cream 11/25/19 23 Active clotrimazole (LOTRIMIN) 1 % cream 05/21/20 22 Active mv-min/iron/foli c/calcium/vitK (WOMEN'S MULTIVITAMIN ORAL) Take by mouth. Active omega-3 acid ethyl esters (LOVAZA) 1 gram capsule Take by mouth. Active UNABLE TO FIND Take 1,000 mg by mouth. Calcium-Magne sium-Vitamin D (CALCIUM 500 OR) Active OneTouch Ultra2 Meter misc 1 each by Other route 1 (one) time. 02/16/20 24 Active metFORMIN XR (GLUCOPHAGE-XR) 500 mg 24 hr tablet TAKE 1 TABLET BY MOUTH TWICE A DAY 180 tablet 1 02/08/20 25 Active lisinopriL (PRINIVIL,ZESTRI L) 5 mg tablet TAKE 1 TABLET BY MOUTH EVERY DAY 90 tablet 1 02/08/20 25 Active ketoconazole (NIZORAL) 2 % cream Apply topically 1 (one) time each day. 30 g 2 04/24/20 25 Active OneTouch Ultra Test test strip USE TO TEST BLOOD SUGAR ONCE A DAY 100 strip 3 05/10/20 25 Active lansoprazole (PREVACID) [address] capsule Take 1 capsule (30 mg total) by mouth 1 (one) time each day. Do not crush or chew. 90 each 3 05/25/20 25 026 Active lancets (OneTouch Delica Plus Lancet) 33 gaugeIndications :Type 2 diabetes mellitus with diabetic microalbuminuria , without long-term current use of insulin ([facility] V24, [facility] V28) Use daily to check blood sugar 100 each 11 07/18/20 25 Active lancets (OneTouch Delica Plus Lancet) 33 gauge 1 Each by Does not apply route daily. Ell.9 - Does not apply 025 Discontinued Active Problems Problem Noted Date Diagnosed Date Thyroid nodule 09/27/2024 Hypertension 08/12/2024 Microalbuminuria 06/04/2019 Obesity (BMI 30.0-34.9) 06/04/2019 Osteoporosis 11/22/2017 Overview (08/12/2024): T score -3.2 lumbar spine, 11/18/2017. 06/2020 T score spine -1.6 hip -3.0 Type II diabetes mellitus wi th renal manifestations ([facility] V24, [facility] V28) 2017 Hyperlipidemia 10/20/2017 Overview (08/12/2024): Total cholesterol 217 and LDL cholesterol 130, 07/11/2016 Adjustment disorder with mixed emotional feature s 05/29/2017 Allergic rhinitis 07/11/2016 Encounters Date Type Department Care Team Description 07/13/2025 10:00 AM EDT Treatment Outpatient Rehabilitation - [address] [phone] Alejandro Nieto, PT Glenohumeral arthritis, right (Primary Dx) 07/05/2025 9:30 AM EDT Treatment Outpatient Rehabilitation - [address] [phone] Alejandro Nieto, PT Glenohumeral arthritis, right (Primary Dx) 06/21/2025 1:30 PM EDT - 06/21/2025 11:59 PM EDT Hospital Encounter Radiology Department - [address] [phone] Leg swelling Discharge Disposition: Home or Self Care 06/19/2025 11:30 AM EDT Office Visit [address] [phone] Linda Bernal, CHANNEL ROUGHER Leg swelling (Primary Dx); Left hip pain; Muscle pain 06/19/2025 8:30 AM EDT Treatment Outpatient [address] [phone] Parminder Velez, COIL CLEANER Glenohumeral arthritis, right (Primary Dx) 06/15/2025 8:00 AM EDT Office Visit Endocrinology - [address] [phone] Dinora Zamudio PA Osteoporosis, unspecified osteoporosis type, unspecified pathological fracture presence (Primary Dx); Type 2 diabetes mellitus with diabetic microalbuminuria, without long-term current use of insulin ([facility] V24, [facility] V28); Thyroid nodule 06/15/2025 Nurse Triage [address] [phone] Tone Valadez MD 06/12/2025 8:30 AM EDT Treatment Outpatient Rehabilitation [address] [phone] Parminder Velez, COIL CLEANER Glenohumeral arthritis, right (Primary Dx) 06/09/2025 9:00 AM EDT Treatment Outpatient [address] [phone] Alejandro Nieto, PT Glenohumeral arthritis, right (Primary Dx) 06/05/2025 8:30 AM EDT Treatment Outpatient [address] [phone] Parminder Velez, COIL CLEANER Glenohumeral arthritis, right (Primary Dx) 06/01/2025 Telephone Gastroenterology [facility] 175 [facility] 175 [facility] [address] [place] [phone] Kimani Jalloh MD 05/29/2025 8:30 AM EDT Treatment Outpatient Rehabilitation - [address] [phone] Parminder Velez, COIL CLEANER Glenohumeral arthritis, right (Primary Dx) 05/26/2025 8:30 AM EDT Treatment Outpatient Rehabilitation - [address] [phone] Parminder Velez, COIL CLEANER Glenohumeral arthritis, right (Primary Dx) 05/22/2025 8:30 AM EDT Treatment Outpatient Rehabilitation - [address] [phone] Parminder Velez, COIL CLEANER Glenohumeral arthritis, right (Primary Dx) 05/18/2025 8:30 AM EDT Treatment Outpatient Rehabilitation - [address] [phone] Jennifer Sainz, COIL CLEANER Glenohumeral arthritis, right (Primary Dx); Rotator cuff syndrome of right shoulder; Chronic pain of both shoulders 05/15/2025 8:30 AM EDT Treatment Outpatient Rehabilitation - [address] [phone] Parminder Velez, COIL CLEANER Glenohumeral arthritis, right (Primary Dx) 05/15/2025 Telephone Endocrinology - [address] [phone] Graciela Smith RN 05/11/2025 11:00 AM EDT Evaluation Outpatient Rehabilitation - [address] [phone] Alejandro Nieto, PT Glenohumeral arthritis, right (Primary Dx); Rotator cuff syndrome of right shoulder; Chronic pain of both shoulders 05/05/2025 9:20 AM EDT Ancillary Procedure Orthopedic Surgery [facility] 160 175 [facility] [address] [place] [phone] 05/05/2025 9:00 AM EDT Procedure visit Orthopedic [facility] 160 175 [facility] [address] [place] [phone] Jessy Ervin MD Arthritis of right shoulder region (Primary Dx) 04/24/2025 9:30 AM EDT Office Visit Orthopedic Surgery [facility] 250 175 [facility] [address] [place] [phone] Emiliano Bennett, DPM Hammer toe of left foot (Primary Dx); Dermatophytosis of nail; Pain in toe of right foot; Pain in toe of left foot; Diabetic mononeuropathy simplex ([facility] V24, [facility] V28); Type II diabetes mellitus with peripheral circulatory disorder ([facility] V24, [facility] V28); Acquired hammer toe of right foot from Last 3 Months Immunizations Name Administration [...] TOOTH EXTRACTIONS PROCEDURE: HISTORICAL DENTAL EXTRACTION CHOLECYSTECTOMY 1971 PROCEDURE: HISTORICAL CHOLECYSTECTOMY OTHER SURGICAL HISTORY PROCEDURE: ---- OTHER ----; COMMENT: D and C times 2 COLONOSCOPY 12/14/2017 PROCEDURE: HISTORICAL COLONOSCOPY; COMMENT: negative screening exam. COLONOSCOPY 01/19/2002 PROCEDURE: HISTORICAL COLONOSCOPY; COMMENT: Negative screening exam. (report in voice recognition folder on M drive.) ESOPHAGOGASTRODUODENOSCOPY 11/24/2022 PROCEDURE: OH EGD TRANSORAL BIOPSY SINGLE/MULTIPLE; COMMENT: Manzo's esophagus, [...] Record ed Within the last 3 months, myles nathan many times did you visit the emergency [...] care for your loved ones. For example, director of early childhood education or elderly care for an older adult? [...] Care Team (Late st Contact Info) Description 07/20/2025 12:30 PM EDT Treatment Outpatient Rehabilitation - [address] [phone] Alejandro Nieto, AMANDA 07/21/2025 9:00 AM EDT Office Visit Orthopedic Surgery [facility] 160 175 [facility] [address] [place] [phone] Analia Moran PA [address] [facility] [address] [place] [address] 07/27/2025 8:30 AM EDT Office Visit Orthopedic Surgery [facility] 250 175 [facility] [address] [place] [phone] Emiliano Bennett, DPM [address] [phone] 09/25/2025 4:00 PM EST Office Visit [facility] - [address] [phone] Tone Valadez MD [address] [place] [address] 11/15/2025 8:00 AM EST Office Visit Endocrinology [address] [phone] Farrah Giles PA [address] [place] [address] Health Maintenance Due Date Last Done Comments Diabetes: Annual Foot Exam 1960 RSV Immunization Adult Patients (1 - Risk 60-74 years 1-dose series) 2010 Falls Risk Assessment 10/18/2022 Medicare Annual Wellness Visit 10/18/2022 Diabetes: Annual Retina Eye Exam 11/23/2024 11/23/2023 Breast Cancer Screening 01/20/2025 01/21/20, 01/11/2022, 11/23/2019, Additional history exists COVID-19 Vaccine ( season) 2025 03/01/2024, 07/31/2023, 12/04/2022, Additional history exists Influenza Vaccine (#1) 2025 [...] LTG's 12 visits General Yes Alejandro Nieto, PT Note: [...] AM EDT Arthritis of right shoulder region OH ARTHROCENTESIS/ASPIR ATION/INJECTION MAJOR JOINT/BURSA W/O U/S GUIDANCE Routine 05/05/2025 9:00 AM EDT Arthritis of right shoulder region BASIC METABOLIC PANEL Routine 03/31/2025 2:45 PM EDT Type 2 diabetes mellitus with diabetic microalbuminuria, without long-term current use of insulin ([facility] V24, [facility] V28) HEMOGLOBIN A1C Routine 03/31/2025 2:45 PM EDT Type 2 diabetes mellitus with diabetic microalbuminuria, without long-term current use of insulin ([facility] V24, [facility] V28) BD BONE DENSITY DXA AXIAL SKELETON Routine 03/30/2025 10:18 AM EDT Osteoporosis, unspecified osteoporosis type, unspecified pathological fracture presence MICROALBUMIN CREATININE URINE RATIO Routine 09/26/2024 9:57 AM EST Type 2 diabetes mellitus with other diabetic kidney complication, without long-term current use of insulin ([facility] V24, [facility] V28) LIPID PANEL WITH REFLEX TO DIRECT [...] Signed Date: 06/21/2025 16:20 ET Workstation ID: [id number] Transcribed By: Self Edit Transcribed Date: 06/21/2025 [...] Signed Date: 06/21/2025 16:20 ET Workstation ID: [id number] Transcribed By: Self Edit Transcribed Date: 06/21/2025 16:19 ET us Linda Bernal CHANNEL ROUGHER CV VASCULAR PROCEDURES Final Result * US [...] MD IMG US PROCEDURES Final Result * OH ARTHROCENTESIS/ASPIRATION/INJECTION MAJOR JOINT/BURSA W/O U/S GUIDANCE (05/05/2025 [...] with patient: Verbal Pre-procedure timeout performed: yes us Jessy Ervin MD IN CLINIC/BEDSIDE ORDERABLES F inal Result * Hemoglobin A1c (03/31/2025 2:45 PM EDT) [facility] Hemoglobin A1C 6.1 <6.5 % LAB CHEMISTRY METHOD 04/02/2025 1:05 PM EDT [facility] Mean Bld Glu Estim. 128 mg/dL LAB CHEMISTRY METHOD 04/02/2025 1:05 PM EDT [facility] Blood Venous blood specimen / Unknown Venipuncture / Unknown 03/31/2025 2:45 PM EDT 03/31/2025 2:45 PM EDT us Farrah MCKEON LAB BLOOD ORDERABLES Final Resul t [facility] [address] [place] [address], * (ABNORMAL) Basic metabolic panel (03/31/2025 2:45 PM EDT) [facility] Sodium 138 133 - 145 mmol/L LAB CHEMISTRY METHOD 03/31/2025 7:00 PM EDT [facility] Potassium 4.6 3.5 - 5.5 mmol/L LAB CHEMISTRY METHOD 03/31/2025 7:00 PM EDT [facility] Chloride 107 96 - 110 mmol/L LAB CHEMISTRY METHOD 03/31/2025 7:00 PM EDT [facility] CO2 22 21 - 32 mmol/L LAB CHEMISTRY METHOD 03/31/2025 7:00 PM EDT [facility] Anion Gap 9 3 - 11 LAB CHEMISTRY METHOD 03/31/2025 7:00 PM EDT [facility] Glucose 153(H) 70 - 100 mg/dL LAB CHEMISTRY METHOD 03/31/2025 7:00 PM EDT [facility] BUN 27(H) 5 - 25 mg/dL LAB CHEMISTRY METHOD 03/31/2025 7:00 PM EDT [facility] Creatinine 0.71 0.50 - 1.10 mg/dL LAB CHEMISTRY METHOD 03/31/2025 7:00 PM EDT [facility] eGFR 89 >=60 mL/min/1. 73m2 LAB CHEMISTRY METHOD 03/31/2025 7:00 PM EDT [facility] Comment:Calculation based on the Chronic Kidney Disease Epidemiology Collaboration (CKD-EPI) equation refit without adjustment for race. BUN/Creatinine Ratio 38.0 LAB CHEMISTRY METHOD 03/31/2025 7:00 PM EDT [facility] Calcium 9.8 8.5 - 10.5 mg/dL LAB CHEMISTRY METHOD 03/31/2025 7:00 PM EDT [facility] Blood Venous blood specimen / Unknown Venipuncture / Unknown 03/31/2025 2:45 PM EDT 03/31/2025 2:45 PM EDT us Farrah MCKEON LAB BLOOD ORDERABLES Final Resul t [facility] [address] [place] [address], * BD Bone Density DXA Axial Skeleton [...] Signed Date: 03/30/2025 21:34 ET Workstation ID: [id number] Transcribed By: Self Edit Transcribed Date: 03/30/2025 21:33 ET Narrative 03/30/2025 9:34 PM EDT Clinical history: osteoporosis Scans of the lumbar spine and hips were performed on a [employer] fan beam bone densitometer. Bone mineral density [...] spine and hips were performed on a [employer] beam bone densitometer. Bone mineral density measurements [...] Signed Date: 03/30/2025 21:34 ET Workstation ID: [id number] Transcribed By: Self Edit Transcribed Date: 03/30/2025 21:33 ET Farrah MCKEON IM DXA PROCEDURES Final Result * (ABNORMAL) Lipid panel with reflex to direct LDL (09/26/2024 9:57 AM EST) Cholesterol 196 0 - 200 mg/dL LAB CHEMISTRY METHOD 09/26/2024 3:04 PM [facility] Triglycerides 234(H) 0 - 150 mg/dL LAB CHEMISTRY METHOD 09/26/2024 3:04 PM [facility] HDL 47 >=40 mg/dL LAB CHEMISTRY METHOD 09/26/2024 3:04 PM [facility] LDL Calculated 102(H) 0 - 100 mg/dL LAB CHEMISTRY METHOD 09/26/2024 3:04 PM [facility] VLDL Cholesterol Sammy 46.8 mg/dL LAB CHEMISTRY METHOD 09/26/2024 3:04 PM [facility] Non HDL Chol. (LDL+VLDL) 149(H) <145 mg/dL LAB CHEMISTRY METHOD 09/26/2024 3:04 PM [facility] Chol/HDL Ratio 4.2 0.0 - 4.4 LAB CHEMISTRY METHOD 09/26/2024 3:04 PM [facility] Blood Venous blood specimen / Unknown Venipuncture / Unknown 09/26/2024 9:57 AM EST 09/26/2024 9:57 AM EST us Tone Valadez MD LAB BLOOD ORDERABLES Final Resu lt [facility] [address] [place] [address], * Microalbumin creatinine urine ratio (09/26/2024 9:57 AM EST) Creatinine, Urine 58.0 mg/dL LAB CHEMISTRY METHOD 09/26/2024 3:56 PM [facility] Microalb, Ur 15.8 0.0 - 29.0 mg/L LAB CHEMISTRY METHOD 09/26/2024 3:56 PM [facility] Microalb/Creat Ratio 27 <30 mg/g creat LAB CHEMISTRY METHOD 09/26/2024 3:56 PM EST [facility] Urine Urine specimen obtained by clean catch procedure / Unknown Non-blood Collection / Unknown 09/26/2024 9:57 AM EST 09/26/2024 9:57 AM EST Tone Valadez MD LAB URINE ORDERABLES Final Resu lt [facility] [address] [place] [address], [place] [phone] * Diabetes Eye Exam (11/23/2023) Diabetes: Annual Retina Eye Exam abstracted Ray Provider HEALTH MAINTENANCE Final Result * SCREENING [...] IMG XR PROCEDUR ES Final Result * Colonoscopy (12/14/2017) Colonoscopy abstracted, no interpretation Anatomical Region Laterality Modality Other Historical Provider HEALTH MAINTENANCE Final Result * Hepatitis C Screening (07/11/2016) Hepatitis C Screening abstracted Historical Provider HEALTH MAINTENANCE Final Result from Last 3 Months or Most Recently Relevant to Health Maintenance Insurance [employer] - [place] MEDICARE ADVANTAGE Care Teams 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
== END 2025-07-19 11:34 | disposition home or self-care (01) ==
LOC: HO.HMGAL 11:32
PROVIDERS: PCP Internal Medicine; Visit Provider Registered Nurse Emergency
DX: J30.89 Other allergic rhinitis (principal)
CPT/HCPCS: 95117; 95165

== ENCOUNTER 2025-07-26 10:06 | Outpatient (AMB) | payer MEDICARE, SELFPAY ==
--- OUTSIDE RECORDS SUMMARY | 2025-07-21 09:00 | XMS_ITS | Encounter Summary ---
Author Organization [facility] Address [address] [place] [address] Care Team Providers Care Child Custody Evaluator Name Role Phone Tone Valadez MD Primary Care Provider [phone] Reason for Visit * Reason Comments Follow-up Encounter Details Date Type Department Care Team (Latest Contact Info) Description 07/21/2025 9:00 AM EDT Office Visit Orthopedic Surgery - [place] [address] [facility] [address] [place] [phone] Analia Moran PA 175 [facility] [address] [place] [address] Glenohumeral arthritis, right (Primary Dx); Rotator cuff arthropathy of right shoulder; Chronic pain of both shoulders; Osteoporosis without current pathological fracture, unspecified osteoporosis type Social History Tobacco Use Types Packs/Day Years [...] care for your loved ones. For example, rn maternal child or elderly care for an older adult? [...] as of this encounter Progress Notes * Analia Moran, LINDA - 07/21/2025 9:00 AM EDT Patient: Philly Pike : 1950 Date: 07/21/2025 Reason For Visit: Chief Complaint Patient presents with Right Shoulder - Follow-up Philly Pike is a 74 y.o. 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 none Last encounter: Within department: 05/05/2025 With this provider: 04/17/2025 HPI: This is a 74-year-old female who is well-known to our practice for bilateral glenohumeral joint arthritis. Patient presents for follow-up evaluation of her right shoulder. Patient has been treated conservatively with injection therapy as noted below. Patient has been considering surgical intervention but needs more time to coordinate care 01/06 at home. 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 History of Present Illness The patient, a 74-year-old female, presents for a follow-up evaluation of her right shoulder. She recently underwent an ultrasound-guided glenohumeral joint injection and physical therapy. The patient reports significant improvement in her condition, with enhanced range of motion and minimal pain. Right Shoulder - Significant improvement in condition - Enhanced range of motion - Minimal pain - Last physical therapy session occurred yesterday - Plans to continue prescribed exercises at home - Improved ability to perform tasks at or above shoulder height - Pain rated at 5/10 with overexertion of overhead activities only - Occasionally takes acetaminophen for pain management - Pain localized to lateral deltoid region to the elbow. Denies pain below the elbow. Axillary - Pain has significantly diminished Neck - Pain is not a major concern - some improvement with injection and C-spine PT Additional Information - Experiences no pain at rest or during sleep - Avoids heavy lifting DOI: Atraumatic Duration: Chronic Treatment history: PT: ordered at last visit: Excellent results in pain relief and improved ROM Completed full rehab program right shoulder in the past HEP: Faithful to home exercise program; feels she is losing motion and would like HEP updated Medication management: Tylenol: 1300 mg PRN NSAIDs: Contraindicated due to hiatal hernia; ipatient has discussed trial of Celebrex with her PCP- is not recommended Injection therapy: both injections give her the same ROM improvements but GH inj lasts longer. 4-5 months Subacromial cortisone injection right shoulder: 08/15/2024 - weeks of relief; 07/07/2024 was working until she fell. Ultrasound-guided right glenohumeral joint injection by Dr. Ervin: 05/05/25; significant improvement in conjuction with PT 10/13/2024; currently still of some benefit at 3 months ; 05/03/2024 Patient does feel glenohumeral joint injections worked better than subacromial ones. Other treatments: none Diagnostic studies previously performed: Shoulder xrays: 02/15/24 Shoulder MRI: None to date; Shoulder CT: None to date ACTIVE MEDICATIONS: Current Outpatient Medications Medication Instructions ammonium lactate (LAC-HYDRIN) 12 % lotion clotrimazole (LOTRIMIN) 1 % cream hydrocortisone 1 % topical cream ketoconazole (NIZORAL) 2 % cream Topical, Daily lancets ([employer] Delica Plus Lancet) 33 gauge Use daily to check blood sugar lansoprazole (PREVACID) 30 mg, oral, Daily, Do not crush or chew. lisinopriL (PRINIVIL,ZESTRIL) 5 mg, oral, Daily loratadine (CLARITIN) 10 mg tablet 1 tablet, Daily metFORMIN XR (GLUCOPHAGE-XR) 500 mg, oral, 2 times daily mv-min/iron/folic/calcium/vitK (WOMEN'S MULTIVITAMIN ORAL) Take by mouth. omega-3 acid ethyl esters (LOVAZA) 1 gram capsule Take by mouth. [employer] Ultra Test test strip USE TO TEST BLOOD SUGAR ONCE A DAY [employer] Ultra2 Meter misc 1 each, Once UNABLE TO FIND 1,000 mg ALLERGIES: Allergies Allergen Reactions Omeprazole Magnesium Hives Physical Exam: Estimated body mass index is 31.18 kg/m?? as calculated from the following: Height as of 06/19/25: 1.537 m (60.5 ). Weight as of 06/19/25: 73.6 kg (162 lb 4.8 oz). Physical Exam APPEARANCE: Alert and in no acute distress Shoulder: Right Inspection: No bony abnormalities, normal muscle bulk symmetry Vascular: Warm and well perfused in the affected extremity and no peripheral edema noted. Palpation: AC joint/distal clavicle region: mild anterior shoulder /proximal biceps region: mild anterior shoulder pain to palpation posterior periscapular region: No posterior shoulder pain lateral acromial /greater tuberosity region: mild superior lateral shoulder pain to palpation Range of motion: no pain with ROM Abduction: 150 degrees Forward Flexion: 150 degrees External Rotation: 40 degrees Internal Rotation: to L4 Muscle strength: Supraspinatus (empty can test): 4/5 without pain infraspinatus (external rotation strength with arm at the side): 4/5 without pain subscapularis (belly press test): 5/5 without pain Special tests: Painful arc test: Negative Impingement Test: Negative Youngblood: Negative Latimer's: Deferred due to limited ROM Additional exam details: None Labs: Lab Results Component Value Date CREATININE 0.71 03/31/2025 Lab Results Component Value Date HGBA1C 6.1 03/31/2025 HGBA1C 6.5 (H) 10/11/2024 HGBA1C 7.5 (H) 09/12/2024 HGBA1C 7.1 (A) 03/04/2024 Imaging: Shoulder X-ray: X-RAY EXAM OF SHOULDER, COMPLETE Result Date: 02/15/2024 HISTORY: shoulder pain TECHNIQUE: 4 views of the right shoulder COMPARISON: Right shoulder radiograph from 08/27/2023 FINDINGS: No acute fracture or dislocation is identified. There is moderate glenohumeral joint space narrowing with subchondral sclerosis. IMPRESSION IMPRESSION: No acute fracture or dislocation of the right shoulder. X-RAY EXAM OF SHOULDER, COMPLETE Result Date: 08/27/2023 EXAM: Right shoulder x-ray HISTORY: Right shoulder pain after a fall a few days ago. COMPARISON: None FINDINGS: 4 views performed. Bones are osteopenic. No evidence of an acute fracture or dislocation. Mild degenerative changes at the acromioclavicular and glenohumeral joints. Lateral downsloping of the acromion with subacromial spurring and moderate narrowing of the acromiohumeral interval. No destructive bone lesion. No soft tissue calcifications. IMPRESSION IMPRESSION: No evidence of an acute fracture or dislocation. Degenerative changes. POS -[id number] X-RAY EXAM OF SHOULDER, COMPLETE Result Date: 01/06/2022 HISTORY: left shoulder pain x 3 months after fall TECHNIQUE: 4 views of the left shoulder COMPARISON: None FINDINGS: No acute fracture or dislocation is seen. Mild narrowing at the inferior glenohumeral joint with osteophytes along the inferior glenoid. There is no evidence of malalignment. The AC joint is mildly narrowed. Osteophytes along the superior aspect of the acromion. IMPRESSION IMPRESSION: No acute fracture or dislocation of the left shoulder. Mild degenerative changes. ASSESSMENT AND PLAN: This is a 74 y.o. female with a longstanding history of glenohumeral arthritis and chronic right shoulder pain treated conservatively with injection therapy. Historically glenohumeral joint injections have worked better than subacromial cortisone injections. She ultimately recognizes she needs to come to surgical intervention as per Dr. Arzate's evaluation in 2021. She is hoping to do the shoulder surgery sometime in the next year, pending getting caretaking coverage for her daughter and her sister. Currently her pain level is much improved and she ishoping if she maintains the exercises and has intermittent injections that she can avoid surgical intervention. After much discussion regarding 1. Glenohumeral arthritis, right 2. Rotator cuff arthropathy of right shoulder 3. Chronic pain of both shoulders 4. Osteoporosis without current pathological fracture, unspecified osteoporosis type using pictures, the following treatment plan was mutually agreed upon. All questions were answered. Assessment & Plan Right shoulder pain Significant improvement post ultrasound-guided glenohumeral joint injection and physical therapy. Minimal pain, improved ROM. No rest or night pain; daily activities performed with minimal discomfort. Continue prescribed exercises at home. Rare Tylenol use for pain. Avoid heavy lifting. -Activity: Avoid heavy lifting. -Rehabilitation: Continue prescribed exercises at home. -Pain Management: Rare Tylenol use for pain. Follow-up: 01/2026 Diagnostic studies: Shoulder xrays: 02/15/24 Shoulder additional testing: not indicated at this time Pain management: Medication: NSAID Systemic; contraindicated as per PCP-underlying hiatal hernia and GERD Kenalog Injection subacromial bursa: 08/15/24: 07/07/2024; 02/15/24 US guided Glenohumeral injection: 05/05/25 ; 10/13/24: ; 6/25/24 No orders of the defined types were placed in this encounter. Follow up in about 6 months (around 01/18/2026) for ROM check, HEP, Right, Shoulder. Future appointments: Visit date not found Today's documentation was made using voice recognition software.This note may contain grammatical errors secondary to this software. LINDA Camacho documented in this encounter Plan of Treatment Upcoming Encounters Date Type Department Care Team (Late st Contact Info) Description 07/27/2025 8:30 AM EDT Office Visit Orthopedic Surgery - [place] [address] [phone] Emiliano Bennett, DPJolene [address] [phone] 09/25/2025 4:00 PM EST Office Visit Adult Medicine [address] [phone] Tone Valadez MD [address] [place] [address] 11/15/2025 8:00 AM EST Office Visit [address] [phone] Farrah Giles PA [address] [place] [address] 01/22/2026 9:00 AM EDT Office Visit Orthopedic Surgery [facility] [address] [phone] Analia Moran PA [address] [phone] documented as of this encounter Visit Diagnoses Diagnosis Glenohumeral arthritis, right- Primary Rotator cuff arthropathy of right shoulder Chronic pain of both shoulders Osteoporosis without current pathological fracture, unspecified osteoporosis type documented in this encounter Additional Health Concerns Assessment Noted Time PHQ-9 Depression Total Score: 0 04/17/20 25 2:01 PM EDT documented as of this encounter Care Teams Child Custody Evaluator Relationship Specialty Start Date End Date Tone aVladez MD [address] [place] [phone] PCP - General Internal Medicine 06/13/20 documented as of this encounter
--- OUTSIDE RECORDS SUMMARY | 2025-07-26 12:15 | XMS_ITS | Clinical Summary ---
Author Organization [facility] [address] [place] [address] [place] [phone] Phone Care Team Providers Care Pinsetter Mechanic Automatic Name Role Phone Tone Valadez MD Primary Care Provider [phone] Allergies Active Allergy Reactions Criticality Noted Date [...] day. 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 ([facility] V24, [facility] V28) 2017 Hyperlipidemia 10/20/2017 Overview (08/12/2024): Total cholesterol 217 and LDL cholesterol 130, 07/11/2016 Adjustment disorder with mixed emotional feature s 05/29/2017 Allergic rhinitis 07/11/2016 Encounters Date Type Department Care Team Description 07/21/2025 9:00 AM EDT Office Visit Orthopedic Surgery [facility] 160 175 [facility] 160 [place] [address] Analia Moran PA Glenohumeral arthritis, right (Primary Dx); Rotator cuff arthropathy of right shoulder; Chronic pain of both shoulders; Osteoporosis without current pathological fracture, unspecified osteoporosis type 07/20/2025 1:00 PM EDT Treatment Outpatient [address] [phone] Alejandro Nieto, PT Glenohumeral arthritis, right (Primary Dx) 07/13/2025 10:00 AM EDT Treatment Outpatient Rehabilitation [address] [phone] Alejandro Nieto, PT Glenohumeral arthritis, right (Primary Dx) 07/05/2025 9:30 AM EDT Treatment Outpatient Rehabilitation [address] [phone] Alejandro Nieto, PT Glenohumeral arthritis, right (Primary Dx) 06/21/2025 1:30 PM EDT - 06/21/2025 11:59 PM EDT Hospital Encounter Radiology Department - [address] [phone] Leg swelling Discharge Disposition: Home or Self Care 06/19/2025 11:30 AM EDT Office Visit Adult Medicine [address] [phone] Linda Bernal, REBECCA Leg swelling (Primary Dx); Left hip pain; Muscle pain 06/19/2025 8:30 AM EDT Treatment Outpatient [address] [phone] Parminder Velez, SENIOR ATTORNEY Glenohumeral arthritis, right (Primary Dx) 06/15/2025 8:00 AM EDT Office Visit Endocrinology - [address] [phone] Dinora Zamudio PA Osteoporosis, unspecified osteoporosis type, unspecified pathological fracture presence (Primary Dx); Type 2 diabetes mellitus with diabetic microalbuminuria, without long-term current use of insulin ([facility] V24, [facility] V28); Thyroid nodule 06/15/2025 Nurse Triage Adult Medicine [address] [phone] Tone Valadez MD 06/12/2025 8:30 AM EDT Treatment Outpatient Rehabilitation [address] [phone] Parminder Velez, SENIOR ATTORNEY Glenohumeral arthritis, right (Primary Dx) 06/09/2025 9:00 AM EDT Treatment Outpatient [address] [phone] Alejandro Nieto, PT Glenohumeral arthritis, right (Primary Dx) 06/05/2025 8:30 AM EDT Treatment Outpatient [address] [phone] Parminder Velez, SENIOR ATTORNEY Glenohumeral arthritis, right (Primary Dx) 06/01/2025 [facility] 175 [facility] 175 [facility] 200 [place] [phone] Kimani Jalloh MD 05/29/2025 8:30 AM EDT Treatment Outpatient [address] [phone] Parminder Velez, SENIOR ATTORNEY Glenohumeral arthritis, right (Primary Dx) 05/26/2025 8:30 AM EDT Treatment Outpatient [address] [phone] Parminder Velez, SENIOR ATTORNEY Glenohumeral arthritis, right (Primary Dx) 05/22/2025 8:30 AM EDT Treatment Outpatient [address] [phone] Parminder Velez, SENIOR ATTORNEY Glenohumeral arthritis, right (Primary Dx) 05/18/2025 8:30 AM EDT Treatment Outpatient [address] [phone] Jennifer Sainz, SENIOR ATTORNEY Glenohumeral arthritis, right (Primary Dx); Rotator cuff syndrome of right shoulder; Chronic pain of both shoulders 05/15/2025 8:30 AM EDT Treatment Outpatient Rehabilitation - [address] [phone] Parminder Velez, SENIOR ATTORNEY Glenohumeral arthritis, right (Primary Dx) 05/15/2025 Telephone Endocrinology - [address] [phone] Graciela Smith RN 05/11/2025 11:00 AM EDT Evaluation Outpatient Rehabilitation - [address] [phone] Alejandro Nieto, PT Glenohumeral arthritis, right (Primary Dx); Rotator cuff syndrome of right shoulder; Chronic pain of both shoulders 05/05/2025 9:20 AM EDT Ancillary Procedure Orthopedic Surgery [facility] [address] [phone] 05/05/2025 9:00 AM EDT Procedure visit Orthopedic Surgery [facility] [address] [phone] Jessy Ervin MD Arthritis of right shoulder region (Primary Dx) from Last 3 Months Immunizations Name Administration [...] folder on M drive.) ESOPHAGOGASTRODUODENOSCOPY 11/24/2022 PROCEDURE: [place] EGD TRANSORAL BIOPSY SINGLE/MULTIPLE; COMMENT: Manzo's esophagus, [...] your loved ones. For example, child care lead teacher or elderly care for an older [...] 8:30 AM EDT Office Visit Orthopedic Surgery [facility] [address] [phone] Emiliano Bennett, DPM [address] [phone] 09/25/2025 4:00 PM EST Office Visit Adult Medicine [address] [phone] Tone Valadez MD [address] [place] [address] 11/15/2025 8:00 AM EST Office Visit Endocrinology [address] [phone] Farrah Giles PA [address] [place] [address] 01/22/2026 9:00 AM EDT Office Visit Orthopedic Surgery [facility] [address] [phone] Analia Moran PA [address] [phone] Health Maintenance Due Date Last Done Comments [...] AM EDT Arthritis of right shoulder region [place] ARTHROCENTESIS/ASPIR ATION/INJECTION MAJOR JOINT/BURSA W/O U/S GUIDANCE Routine 05/05/2025 9:00 AM EDT Arthritis of right shoulder region BASIC METABOLIC PANEL Routine 03/31/2025 2:45 PM EDT Type 2 diabetes mellitus with diabetic microalbuminuria, without long-term current use of insulin (CMS/HCC V24, [facility] V28) HEMOGLOBIN A1C Routine 03/31/2025 2:45 PM EDT Type 2 diabetes mellitus with diabetic microalbuminuria, without long-term current use of insulin (CMS/HCC V24, [facility] V28) BD BONE DENSITY DXA AXIAL SKELETON Routine 03/30/2025 10:18 AM EDT Osteoporosis, unspecified osteoporosis type, unspecified pathological fracture presence MICROALBUMIN CREATININE URINE RATIO Routine 09/26/2024 9:57 AM EST Type 2 diabetes mellitus with other diabetic kidney complication, without long-term current use of insulin ([facility] V24, CMS/HCC V28) LIPID PANEL WITH REFLEX TO DIRECT [...] Signed Date: 06/21/2025 16:20 ET Workstation ID: [id number] Transcribed By: Self Edit Transcribed Date: 06/21/2025 [...] Signed Date: 06/21/2025 16:20 ET Workstation ID: [id number] Transcribed By: Self Edit Transcribed Date: 06/21/2025 [...] MD IMG US PROCEDURES Final Result * [place] ARTHROCENTESIS/ASPIRATION/INJECTION MAJOR JOINT/BURSA W/O U/S GUIDANCE (05/05/2025 [...] with patient: Verbal Pre-procedure timeout performed: yes Result [facility] Jessy Ervin MD IN CLINIC/BEDSIDE ORDERABLES F inal Result * Hemoglobin A1c (03/31/2025 2:45 PM EDT) Hemoglobin A1C 6.1 <6.5 % LAB CHEMISTRY METHOD 04/02/2025 1:05 PM EDT [facility] Mean Bld Glu Estim. 128 mg/dL LAB CHEMISTRY METHOD 04/02/2025 1:05 PM EDT [facility] Blood Venous blood specimen / Unknown Venipuncture / Unknown 03/31/2025 2:45 PM EDT 03/31/2025 2:45 PM EDT Result [facility] Farrah MCKEON LAB BLOOD ORDERABLES Final Resul t [facility] [address] [place] [address], * (ABNORMAL) Basic metabolic panel (03/31/2025 2:45 PM EDT) Sodium 138 133 - 145 mmol/L LAB CHEMISTRY METHOD 03/31/2025 7:00 PM [facility] Potassium 4.6 3.5 - 5.5 mmol/L LAB CHEMISTRY METHOD 03/31/2025 7:00 PM [facility] Chloride 107 96 - 110 mmol/L LAB CHEMISTRY METHOD 03/31/2025 7:00 PM [facility] CO2 22 21 - 32 mmol/L LAB CHEMISTRY METHOD 03/31/2025 7:00 PM [facility] Anion Gap 9 3 - 11 LAB CHEMISTRY METHOD 03/31/2025 7:00 PM [facility] Glucose 153(H) 70 - 100 mg/dL LAB CHEMISTRY METHOD 03/31/2025 7:00 PM [facility] BUN 27(H) 5 - 25 mg/dL LAB CHEMISTRY METHOD 03/31/2025 7:00 PM [facility] Creatinine 0.71 0.50 - 1.10 mg/dL LAB CHEMISTRY METHOD 03/31/2025 7:00 PM [facility] eGFR 89 >=60 mL/min/1. 73m2 LAB CHEMISTRY METHOD 03/31/2025 7:00 PM [facility] Comment:Calculation based on the Chronic Kidney Disease Epidemiology Collaboration (CKD-EPI) equation refit without adjustment for race. BUN/Creatinine Ratio 38.0 LAB CHEMISTRY METHOD 03/31/2025 7:00 PM [facility] Calcium 9.8 8.5 - 10.5 mg/dL LAB CHEMISTRY METHOD 03/31/2025 7:00 PM [facility] Blood Venous blood specimen / Unknown Venipuncture / Unknown 03/31/2025 2:45 PM EDT 03/31/2025 2:45 PM EDT us Farrah MCKEON LAB BLOOD ORDERABLES Final Resul t [facility] ([facility] [address] [place] [address], * BD Bone Density DXA Axial Skeleton [...] Signed Date: 03/30/2025 21:34 ET Workstation ID: [id number] Transcribed By: Self Edit Transcribed Date: 03/30/2025 21:33 ET Narrative 03/30/2025 9:34 PM EDT Clinical history: osteoporosis Scans of the lumbar spine and hips were performed on a [employer] fan beam bone densitometer. Bone mineral density [...] spine and hips were performed on a [employer] beam bone densitometer. Bone mineral density measurements [...] Signed Date: 03/30/2025 21:34 ET Workstation ID: [id number] Transcribed By: Self Edit Transcribed Date: 03/30/2025 21:33 ET Farrah MCKEON IM DXA PROCEDURES Final Result * (ABNORMAL) Lipid panel with reflex to direct LDL (09/26/2024 9:57 AM EST) Cholesterol 196 0 - 200 mg/dL LAB CHEMISTRY METHOD 09/26/2024 3:04 PM [facility] Triglycerides 234(H) 0 - 150 mg/dL LAB CHEMISTRY METHOD 09/26/2024 3:04 PM [facility] HDL 47 >=40 mg/dL LAB CHEMISTRY METHOD 09/26/2024 3:04 PM [facility] LDL Calculated 102(H) 0 - 100 mg/dL LAB CHEMISTRY METHOD 09/26/2024 3:04 PM [facility] VLDL Cholesterol Sammy 46.8 mg/dL LAB CHEMISTRY METHOD 09/26/2024 3:04 PM [facility] Non HDL Chol. (LDL+VLDL) 149(H) <145 mg/dL LAB CHEMISTRY METHOD 09/26/2024 3:04 PM [facility] Chol/HDL Ratio 4.2 0.0 - 4.4 LAB CHEMISTRY METHOD 09/26/2024 3:04 PM EST [facility] Blood Venous blood specimen / Unknown Venipuncture / Unknown 09/26/2024 9:57 AM EST 09/26/2024 9:57 AM EST Tone Valadez MD LAB BLOOD ORDERABLES Final Resu lt Performing Organization Address [facility]/ZIP Co de Phone Number [facility] [address] [place] [address], * Microalbumin creatinine urine ratio (09/26/2024 9:57 AM EST) Creatinine, Urine 58.0 mg/dL LAB CHEMISTRY METHOD 09/26/2024 3:56 PM [facility] Microalb, Ur 15.8 0.0 - 29.0 mg/L LAB CHEMISTRY METHOD 09/26/2024 3:56 PM [facility] Microalb/Creat Ratio 27 <30 mg/g creat LAB CHEMISTRY METHOD 09/26/2024 3:56 PM EST [facility] Urine Urine specimen obtained by clean catch procedure / Unknown Non-blood Collection / Unknown 09/26/2024 9:57 AM EST 09/26/2024 9:57 AM EST Tone Valadez MD LAB URINE ORDERABLES Final Resu lt Performing Organization Address City/[facility]/ZIP Co de Phone Number [facility] [address] [place] [address], [place] [phone] * Hm Diabetes Eye Exam (11/23/2023) Pathologist [facility] Diabetes: Annual Retina Eye Exam abstracted Historical [...] [place]OSS - [place] MEDIC[place] AD[place] Care Teams Pinsetter Mechanic Automatic Relationship Specialty Start Date End Date Tone Valadez MD [address] [place] [phone] PCP - General Internal Medicine 06/13/20
== END 2025-07-26 10:06 | disposition home or self-care (01) ==
LOC: HO.HMGAL 10:06
PROVIDERS: PCP Internal Medicine; Visit Provider Registered Nurse Emergency
DX: J30.89 Other allergic rhinitis (principal)
CPT/HCPCS: 95117; 95165

== ENCOUNTER 2025-08-02 15:12 | Outpatient (AMB) | payer MEDICARE, SELFPAY ==
--- OUTSIDE RECORDS SUMMARY | 2025-08-02 17:38 | XMS_ITS | Clinical Summary ---
Author Organization [facility] [address] [place] [address] [place] [phone] Phone Care Team Providers Care Communications Equipment Supervisor Name Role Phone Tone Valadez MD Primary Care Provider [phone] Allergies Active Allergy Reactions Criticality Noted Date [...] day. 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 ([facility] [place] [facility] [place]28) 2017 Hyperlipidemia 10/20/2017 Overview (08/12/2024): Total cholesterol 217 and LDL cholesterol 130, 07/11/2016 Adjustment disorder with mixed emotional feature s 05/29/2017 Allergic rhinitis 07/11/2016 Encounters Date Type Department Care Team Description 07/21/2025 9:00 AM EDT Office Visit Orthopedic Surgery [facility] 160 175 [facility] 160 [place] [address] Analia Moran PA Glenohumeral arthritis, right (Primary Dx); Rotator cuff arthropathy of right shoulder; Chronic pain of both shoulders; Osteoporosis without current pathological fracture, unspecified osteoporosis type 07/20/2025 1:00 PM EDT Treatment Outpatient [address] [phone] Alejandro Nieto, PT Glenohumeral arthritis, right (Primary Dx) 07/13/2025 10:00 AM EDT Treatment Outpatient Rehabilitation [address] [phone] Alejandro Nieto, PT Glenohumeral arthritis, right (Primary Dx) 07/05/2025 9:30 AM EDT Treatment Outpatient Rehabilitation [address] [phone] Alejandro Nieto, PT Glenohumeral arthritis, right (Primary Dx) 06/21/2025 1:30 PM EDT - 06/21/2025 11:59 PM EDT Hospital Encounter Radiology Department - [address] [phone] Leg swelling Discharge Disposition: Home or Self Care 06/19/2025 11:30 AM EDT Office Visit Adult Medicine [address] [phone] Linda Bernal, REBECCA Leg swelling (Primary Dx); Left hip pain; Muscle pain 06/19/2025 8:30 AM EDT Treatment Outpatient [address] [phone] Parminder Velez, NURSE ANESTHESIA PROGRAM DIRECTOR Glenohumeral arthritis, right (Primary Dx) 06/15/2025 8:00 AM EDT Office Visit Endocrinology - [address] [phone] Dinora Zamudio PA Osteoporosis, unspecified osteoporosis type, unspecified pathological fracture presence (Primary Dx); Type 2 diabetes mellitus with diabetic microalbuminuria, without long-term current use of insulin ([facility] V24, [facility] V28); Thyroid nodule 06/15/2025 Nurse Triage Adult Medicine [address] [phone] Tone Valadez MD 06/12/2025 8:30 AM EDT Treatment Outpatient Rehabilitation [address] [phone] Parminder Velez, NURSE ANESTHESIA PROGRAM DIRECTOR Glenohumeral arthritis, right (Primary Dx) 06/09/2025 9:00 AM EDT Treatment Outpatient [address] [phone] Alejandro Nieto, PT Glenohumeral arthritis, right (Primary Dx) 06/05/2025 8:30 AM EDT Treatment Outpatient [address] [phone] Parminder Velez, NURSE ANESTHESIA PROGRAM DIRECTOR Glenohumeral arthritis, right (Primary Dx) 06/01/2025 [facility] 175 [facility] 175 [facility] 200 [place] [address] Kimani Jalloh MD 05/29/2025 8:30 AM EDT Treatment Outpatient [address] [phone] Parminder Velez, NURSE ANESTHESIA PROGRAM DIRECTOR Glenohumeral arthritis, right (Primary Dx) 05/26/2025 8:30 AM EDT Treatment Outpatient [address] [phone] Parminder Velez, NURSE ANESTHESIA PROGRAM DIRECTOR Glenohumeral arthritis, right (Primary Dx) 05/22/2025 8:30 AM EDT Treatment Outpatient [address] [phone] Parminder Velez, NURSE ANESTHESIA PROGRAM DIRECTOR Glenohumeral arthritis, right (Primary Dx) 05/18/2025 8:30 AM EDT Treatment Outpatient [address] [phone] Jennifer Sainz, NURSE ANESTHESIA PROGRAM DIRECTOR Glenohumeral arthritis, right (Primary Dx); Rotator cuff syndrome of right shoulder; Chronic pain of both shoulders 05/15/2025 8:30 AM EDT Treatment Outpatient Rehabilitation - [address] [phone] Parminder Velez, NURSE ANESTHESIA PROGRAM DIRECTOR Glenohumeral arthritis, right (Primary Dx) 05/15/2025 Telephone Endocrinology - [address] [phone] Graciela Smith RN 05/11/2025 11:00 AM EDT Evaluation Outpatient Rehabilitation - [address] [phone] Alejandro Nieto, PT Glenohumeral arthritis, right (Primary Dx); Rotator cuff syndrome of right shoulder; Chronic pain of both shoulders 05/05/2025 9:20 AM EDT Ancillary Procedure Orthopedic Surgery [facility] [address] [phone] 05/05/2025 9:00 AM EDT Procedure visit Orthopedic Surgery [facility] [address] [phone] Jessy Ervin MD Arthritis of right shoulder [...] folder on [address].) ESOPHAGOGASTRODUODENOSCOPY 11/24/2022 PROCEDURE: AK EGD TRANSORAL BIOPSY SINGLE/MULTIPLE; COMMENT: Manzo's esophagus, [...] care for your loved ones. For example, early childhood director or elderly care for an older adult? [...] Care Team (Late st Contact Info) Description 09/25/2025 4:00 PM EST Office Visit Adult Medicine [place] - [address] [phone] Tone Valadez MD [address] [place] [address] 11/15/2025 8:00 AM EST Office Visit Endocrinology - [address] [phone] Farrah Giles PA [address] [place] [address] 01/22/2026 9:00 AM EDT Office Visit Orthopedic Surgery - [place] [address] [phone] Analia Moran PA [address] [address] Health Maintenance Due Date Last Done Comments Diabetes: Annual Foot Exam 1960 RSV Immunization Adult Patients (1 - Risk 60-74 years 1-dose series) 2010 Falls Risk Assessment 10/18/2022 Medicare Annual Wellness Visit 10/18/2022 Diabetes: Annual Retina Eye Exam 11/23/2024 11/23/2023 Breast Cancer Screening 01/20/2025 01/21/20 23, 01/11/2022, 11/23/2019, Additional history exists COVID-19 Vaccine (8 - 2025-26 season) 2025 03/01/2024, 07/31/2023, 12/04/2022, Additional history [...] AM EDT Arthritis of right shoulder region [place] ARTHROCENTESIS/ASPIR ATION/INJECTION MAJOR JOINT/BURSA W/O U/S GUIDANCE Routine 05/05/2025 9:00 AM EDT Arthritis of right shoulder region BASIC METABOLIC PANEL Routine 03/31/2025 2:45 PM EDT Type 2 diabetes mellitus with diabetic microalbuminuria, without long-term current use of insulin ([facility] V24, [facility] V28) HEMOGLOBIN A1C Routine 03/31/2025 2:45 PM EDT Type 2 diabetes mellitus with diabetic microalbuminuria, without long-term current use of insulin ([facility] V24, [facility] V28) BD BONE DENSITY DXA AXIAL SKELETON Routine 03/30/2025 10:18 AM EDT Osteoporosis, unspecified osteoporosis type, unspecified pathological fracture presence MICROALBUMIN CREATININE URINE RATIO Routine 09/26/2024 9:57 AM EST Type 2 diabetes mellitus with other diabetic kidney complication, without long-term current use of insulin ([facility] V24, [facility] V28) LIPID PANEL WITH REFLEX TO DIRECT LDL Routine 09/26/2024 9:57 AM EST Pure hypercholesterolemia HM DIABETES EYE EXAM Routine 11/23/2023 SCREENING MAMMOGRAPHY [...] Signed Date: 06/21/2025 16:20 ET Workstation ID: [id number] Transcribed By: Self Edit Transcribed Date: 06/21/2025 [...] Signed Date: 06/21/2025 16:20 ET Workstation ID: [id number] Transcribed By: Self Edit Transcribed Date: 06/21/2025 [...] MD IMG US PROCEDURES Final Result * AK ARTHROCENTESIS/ASPIRATION/INJECTION MAJOR JOINT/BURSA W/O U/S GUIDANCE (05/05/2025 [...] LAB CHEMISTRY METHOD 04/02/2025 1:05 PM EDT [facility] Mean Bld Glu Estim. 128 mg/dL LAB CHEMISTRY METHOD 04/02/2025 1:05 PM EDT [facility] Blood Venous blood specimen / Unknown Venipuncture / Unknown 03/31/2025 2:45 PM EDT 03/31/2025 2:45 PM EDT us Farrah MCKEON LAB BLOOD ORDERABLES Final Resul t [facility] [address] [place] [address], [place] [phone] * (ABNORMAL) Basic metabolic panel (03/31/2025 2:45 PM EDT) Sodium 138 133 - 145 mmol/L LAB CHEMISTRY METHOD 03/31/2025 7:00 PM [facility] Potassium 4.6 3.5 - 5.5 mmol/L LAB CHEMISTRY METHOD 03/31/2025 7:00 PM [facility] Chloride 107 96 - 110 mmol/L LAB CHEMISTRY METHOD 03/31/2025 7:00 PM [facility] CO2 22 21 - 32 mmol/L LAB CHEMISTRY METHOD 03/31/2025 7:00 PM [facility] Anion Gap 9 3 - 11 LAB CHEMISTRY METHOD 03/31/2025 7:00 PM [facility] Glucose 153(H) 70 - 100 mg/dL LAB CHEMISTRY METHOD 03/31/2025 7:00 PM [facility] BUN 27(H) 5 - 25 mg/dL LAB CHEMISTRY METHOD 03/31/2025 7:00 PM [facility] Creatinine 0.71 0.50 - 1.10 mg/dL LAB CHEMISTRY METHOD 03/31/2025 7:00 PM [facility] eGFR 89 >=60 mL/min/1. 73m2 LAB CHEMISTRY METHOD 03/31/2025 7:00 PM [facility] Comment:Calculation based on the Chronic Kidney Disease Epidemiology Collaboration (CKD-EPI) equation refit without adjustment for race. BUN/Creatinine Ratio 38.0 LAB CHEMISTRY METHOD 03/31/2025 7:00 PM [facility] Calcium 9.8 8.5 - 10.5 mg/dL LAB CHEMISTRY METHOD 03/31/2025 7:00 PM [facility] Blood Venous blood specimen / Unknown Venipuncture / Unknown 03/31/2025 2:45 PM EDT 03/31/2025 2:45 PM EDT us Farrah MCKEON LAB BLOOD ORDERABLES Final Resul t [facility] [address] [place] [address], * BD Bone Density DXA Axial Skeleton [...] Signed Date: 03/30/2025 21:34 ET Workstation ID: [id number] Transcribed By: Self Edit Transcribed Date: 03/30/2025 21:33 ET Narrative 03/30/2025 9:34 PM EDT Clinical history: osteoporosis Scans of the lumbar spine and hips were performed on a [employer] fan beam bone densitometer. Bone mineral density [...] spine and hips were performed on a [employer] beam bone densitometer. Bone mineral density measurements [...] Signed Date: 03/30/2025 21:34 ET Workstation ID: [id number] Transcribed By: Self Edit Transcribed Date: 03/30/2025 21:33 ET us Farrah MCKEON IMG DXA PROCEDURES Final Result * (ABNORMAL) Lipid panel with reflex to direct LDL (09/26/2024 9:57 AM EST) Cholesterol 196 0 - 200 mg/dL LAB CHEMISTRY METHOD 09/26/2024 3:04 PM [facility] Triglycerides 234(H) 0 - 150 mg/dL LAB CHEMISTRY METHOD 09/26/2024 3:04 PM EST [facility] HDL 47 >=40 mg/dL LAB CHEMISTRY METHOD 09/26/2024 3:04 PM [facility] LDL Calculated 102(H) 0 - 100 mg/dL LAB CHEMISTRY METHOD 09/26/2024 3:04 PM [facility] VLDL Cholesterol Sammy 46.8 mg/dL LAB CHEMISTRY METHOD 09/26/2024 3:04 PM [facility] Non HDL Chol. (LDL+VLDL) 149(H) <145 mg/dL LAB CHEMISTRY METHOD 09/26/2024 3:04 PM [facility] Chol/HDL Ratio 4.2 0.0 - 4.4 LAB CHEMISTRY METHOD 09/26/2024 3:04 PM [facility] Blood Venous blood specimen / Unknown Venipuncture / Unknown 09/26/2024 9:57 AM EST 09/26/2024 9:57 AM EST us Tone Valadez MD LAB BLOOD ORDERABLES Final Resu lt [facility] [address] [place] [address], * Microalbumin creatinine urine ratio (09/26/2024 9:57 AM EST) Pathologist [facility] Creatinine, Urine 58.0 mg/dL LAB CHEMISTRY METHOD 09/26/2024 3:56 PM EST [facility] Microalb, Ur 15.8 0.0 - 29.0 mg/L LAB CHEMISTRY METHOD 09/26/2024 3:56 PM EST [facility] Microalb/Creat Ratio 27 <30 mg/g creat LAB CHEMISTRY METHOD 09/26/2024 3:56 PM EST [facility] Urine Urine specimen obtained by clean catch procedure / Unknown Non-blood Collection / Unknown 09/26/2024 9:57 AM EST 09/26/2024 9:57 AM EST Tone Valadez MD LAB URINE ORDERABLES Final Resu lt [facility] [address] [place] [address], * Hm Diabetes Eye Exam (11/23/2023) [facility] Diabetes: Annual Retina Eye Exam abstracted Historical [...] [place] - [place] Care Teams Communications Equipment Supervisor Relationship Specialty Start Date End Date Tone Valadez MD [address] [place] [phone] PCP - General Internal Medicine 06/13/20
== END 2025-08-02 15:13 | disposition home or self-care (01) ==
LOC: HO.HMGAL 15:12
PROVIDERS: PCP Internal Medicine; Visit Provider Registered Nurse Emergency
DX: J30.89 Other allergic rhinitis (principal)
CPT/HCPCS: 95117; 95165

== ENCOUNTER 2025-08-23 12:01 | Outpatient (AMB) | payer MEDICARE, SELFPAY ==
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
--- OUTSIDE RECORDS SUMMARY | 2025-08-23 15:13 | XMS_ITS | Encounter Summary ---
Author Organization [facility] Address [address] [place] [address] Care Team Providers Care Dish Maker Name Role Phone Tone Valadez MD Primary Care Provider [phone] Encounter Details Date Type Department Care Team (Late st Contact Info) Description 08/21/2025 Results Follow-Up Adult Medicine [address] [phone] Tone Valadez MD [address] [place] [address] Social History Tobacco Use Types Packs/Day Years [...] your loved ones. For example, early childhood education instructor or elderly care for an older adult? [...] PM EDT documented as of this encounter Plan of Treatment Upcoming Encounters Date Type Department Care Team (Late st Contact Info) Description 08/29/2025 11:30 AM EDT Office Visit Adult Medicine [address] [phone] Camilo Felix PA [address] [place] [address] 09/25/2025 4:00 PM EST Office Visit Adult Medicine South [address] [phone] Tone Valadez MD [address] [place] [address] 11/15/2025 8:00 AM EST Office Visit Endocrinology [address] [phone] Farrah Giles PA [address] [place] [address] 01/22/2026 9:00 AM EDT Office Visit Orthopedic Surgery - [place] [address] [phone] Analia Moran PA [address] [address] documented as of this encounter Visit Diagnoses Not on filedocumented in this encounter Additional Health Concerns Assessment Noted Time PHQ-9 Depression Total Score: 0 04/17/20 25 2:01 PM EDT documented as of this encounter Care Teams Dish Maker Relationship Specialty Start Date End Date Tone Valadez MD [address] [place] [address] PCP - General Internal Medicine 06/13/20 documented as of this encounter
== END 2025-08-23 12:02 | disposition home or self-care (01) ==
LOC: HO.HMGAL 12:01
PROVIDERS: PCP Internal Medicine; Visit Provider Registered Nurse Emergency
DX: J30.89 Other allergic rhinitis (principal)
CPT/HCPCS: 95117; 95165

== ENCOUNTER 2025-08-30 15:10 | Outpatient (AMB) | payer MEDICARE, SELFPAY ==
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
--- OUTSIDE RECORDS SUMMARY | 2025-08-30 21:24 | XMS_ITS | Encounter Summary ---
Author Organization [facility] Address [address] [place] [address] Care Team Providers Care C.O.D. Biller Name Role Phone Tone Valadez MD Primary Care Provider [phone] Encounter Details Date Type Department Care Team (Late st Contact Info) Description 08/21/2025 Results Follow-Up Adult Medicine [address] [phone] Tone Valadez MD [address] [place] [address] Social History Tobacco Use Types Packs/Day Years [...] for your loved ones. For example, child life assistant or elderly care for an older adult? [...] 4:00 PM EST Office Visit Adult Medicine [address] [phone] Tone Valadez MD [address] [place] [address] 11/15/2025 8:00 AM EST Office Visit Endocrinology [address] [phone] Farrah Giles PA [address] [place] [address] 01/22/2026 9:00 AM EDT Office Visit Orthopedic Surgery [place] [address] [phone] Analia Moran PA [address] [address] documented as of this encounter Visit Diagnoses Not on filedocumented in this encounter Additional Health Concerns Assessment Noted Time PHQ-9 Depression Total Score: 0 04/17/20 25 2:01 PM EDT documented as of this encounter Care Teams C.O.D. Biller Relationship Specialty Start Date End Date Tone Valadez MD [address] [place] [address] PCP - General Internal Medicine 06/13/20 documented as of this encounter
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
== END 2025-08-30 15:10 | disposition home or self-care (01) ==
LOC: HO.HMGAL 15:10
PROVIDERS: PCP Internal Medicine; Visit Provider Registered Nurse Emergency
DX: J30.89 Other allergic rhinitis (principal)
CPT/HCPCS: 95117; 95165

== ENCOUNTER 2025-09-06 09:37 | Outpatient (AMB) | payer MEDICARE, SELFPAY ==
--- OUTSIDE RECORDS SUMMARY | 2025-09-06 11:29 | XMS_ITS | Encounter Summary ---
Author Organization [facility] Address [address] [place] [address] Care Team Providers Care Rate Engineer Name Role Phone Tone Valadez MD Primary Care Provider [phone] Encounter Details Date Type Department Care Team (Late st Contact Info) Description 08/21/2025 Results Follow-Up Adult Medicine [address] [phone] Tone Valadez MD [address] [place] [address] Social History Tobacco Use Types Packs/Day Years [...] for your loved ones. For example, child day care teacher or elderly care for an older [...] 4:00 PM EST Office Visit Adult Medicine [address] [phone] Tone Valadez MD [address] [place] [address] 11/15/2025 8:00 AM EST Office Visit Endocrinology [address] [phone] Farrah Giles PA [address] [place] [address] 01/22/2026 9:00 AM EDT Office Visit Orthopedic Surgery [facility] [address] [place] [phone] Analia Moran PA [address] [place] [phone] documented as of this encounter Visit Diagnoses Not on filedocumented in this encounter Additional Health Concerns Assessment Noted Time PHQ-9 Depression Total Score: 0 04/17/20 25 2:01 PM EDT documented as of this encounter Care Teams Rate Engineer Relationship Specialty Start Date End Date Tone Valadez MD [address] [place] [address] PCP - General Internal Medicine 06/13/20 documented as of this encounter
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
== END 2025-09-06 09:38 | disposition home or self-care (01) ==
LOC: HO.HMGAL 09:37
PROVIDERS: PCP Internal Medicine; Visit Provider Registered Nurse Emergency
DX: J30.89 Other allergic rhinitis (principal)
CPT/HCPCS: 95117; 95165

== ENCOUNTER 2025-09-13 15:48 | Outpatient (AMB) | payer MEDICARE, SELFPAY ==
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
--- OUTSIDE RECORDS SUMMARY | 2025-09-13 18:35 | XMS_ITS | Encounter Summary ---
Author Organization [facility] Address [address] [place] [address] Care Team Providers Care Pipe Bending Machine Operator Name Role Phone Tone Valadez MD Primary Care Provider [phone] Encounter Details Date Type Department Care Team (Late st Contact Info) Description 08/21/2025 Results Follow-Up Adult Medicine [address] [phone] Tone Valadez MD [address] [place] [address] Social History Tobacco Use Types Packs/Day Years [...] for your loved ones. For example, director child development center or elderly care for an older adult? [...] 09/25/2025 1:30 PM EST Evaluation Outpatient Rehabilitation [address] [place] [phone] Xavi Paulino, PT 09/25/2025 2:30 PM EST Office Visit Adult Medicine South [address] [phone] Linda Bernal NP [address] [place] [address] 11/15/2025 8:00 AM EST Office Visit Endocrinology [address] [phone] Farrah Giles PA [address] [place], [place] 01/22/2026 9:00 AM EDT Office Visit Orthopedic Surgery - [place] [address] [phone] Analia Moran PA [address] [phone] documented as of this encounter Visit Diagnoses Not on filedocumented in this encounter Additional Health Concerns Assessment Noted Time PHQ-9 Depression Total Score: 0 04/17/20 25 2:01 PM EDT documented as of this encounter Care Teams Pipe Bending Machine Operator Relationship Specialty Start Date End Date Tone Valadez MD [address] [place] [address] PCP - General Internal Medicine 06/13/20 documented as of this encounter
== END 2025-09-13 15:49 | disposition home or self-care (01) ==
LOC: HO.HMGAL 15:48
PROVIDERS: PCP Internal Medicine; Visit Provider Registered Nurse Emergency
DX: J30.89 Other allergic rhinitis (principal)
CPT/HCPCS: 95117; 95165

== ENCOUNTER 2025-09-20 14:12 | Outpatient (AMB) | payer MEDICARE, SELFPAY ==
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
--- OUTSIDE RECORDS SUMMARY | 2025-09-20 17:26 | XMS_ITS | Encounter Summary ---
Author Organization [facility] Address [address] [place] [address] Care Team Providers Care Steel Post Installer Name Role Phone Tone Valadez MD Primary Care Provider [phone] Encounter Details Date Type Department Care Team (Late st Contact Info) Description 08/21/2025 Results Follow-Up Adult Medicine [address] [phone] Tone Valadez MD [address] [place] [address] Social History Tobacco Use Types Packs/Day Years [...] your loved ones. For example, child care worker or elderly care for an older adult? [...] 09/25/2025 1:30 PM EST Evaluation Outpatient Rehabilitation [place] [phone] [place] [phone] Xavi Paulino, PT 09/28/2025 8:30 AM EST Office Visit Adult Medicine [address] [phone] Camilo Felix PA [address] [place] [address] 11/15/2025 8:00 AM EST Office Visit Endocrinology [address] [phone] Farrah Giles PA [address] [place], [place] 01/22/2026 9:00 AM EDT Office Visit Orthopedic Surgery - [place] [address] [phone] Analia Moran PA [address] [address] documented as of this encounter Visit Diagnoses Not on filedocumented in this encounter Additional Health Concerns Assessment Noted Time PHQ-9 Depression Total Score: 0 04/17/20 25 2:01 PM EDT documented as of this encounter Care Teams Steel Post Installer Relationship Specialty Start Date End Date Tone Valadez MD [address] [place] [address] PCP - General Internal Medicine 06/13/20 documented as of this encounter
== END 2025-09-20 14:12 | disposition home or self-care (01) ==
LOC: HO.HMGAL 14:12
PROVIDERS: PCP Internal Medicine; Visit Provider Registered Nurse Emergency
DX: J30.89 Other allergic rhinitis (principal)
CPT/HCPCS: 95117; 95165

== ENCOUNTER 2025-09-27 10:51 | Outpatient (AMB) | payer MEDICARE, SELFPAY ==
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
--- OUTSIDE RECORDS SUMMARY | 2025-09-27 21:24 | XMS_ITS | Encounter Summary ---
Author Organization [facility] Address [address] [place] [address] Care Team Providers Care Service Person Name Role Phone Tone Valadez MD Primary Care Provider [phone] Encounter Details Date Type Department Care Team (Late st Contact Info) Description 08/21/2025 Results Follow-Up Adult Medicine [address] [phone] Tone Valadez MD [address] [place] [address] Social History Tobacco Use Types Packs/Day Years [...] care for your loved ones. 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 or elderly care [...] 8:30 AM EST Office Visit Adult Medicine [address] [phone] Camilo Felix PA [address] [place], [place] 10/03/2025 8:30 AM EST Treatment Outpatient Rehabilitation - [address] [phone] Jennifer Sainz, MEMORIAL ADVISER 10/06/2025 11:00 AM EST Treatment Outpatient Rehabilitation - [address] [phone] Jennifer Sainz H, MEMORIAL ADVISER 10/09/2025 9:00 AM EST Treatment Outpatient [facility] - [address] [phone] Jennifer Sainz, MEMORIAL ADVISER 10/12/2025 11:00 AM EST Treatment Outpatient [address] [phone] Jennifer Sainz, MEMORIAL ADVISER 10/16/2025 9:00 AM EST Treatment Outpatient [facility] - [address] [phone] Jennifer Sainz, MEMORIAL ADVISER 10/18/2025 9:30 AM EST Treatment Outpatient [facility] - [address] [phone] Xavi Paulino, PT 11/15/2025 8:00 AM EST Office Visit Endocrinology - [address] [phone] Farrah Giles PA [address] [place] [address] 01/22/2026 9:00 AM EDT Office Visit Orthopedic Surgery - [place] [address] [phone] Analia Moran PA [address] [address] documented as of this encounter Visit Diagnoses Not on filedocumented in this encounter Additional Health Concerns Assessment Noted Time PHQ-9 Depression Total Score: 0 04/17/20 25 2:01 PM EDT documented as of this encounter Care Teams Service Person Relationship Specialty Start Date End Date Tone Valadez MD [address] [place] [address] PCP - General Internal Medicine 06/13/20 documented as of this encounter
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
== END 2025-09-27 10:52 | disposition home or self-care (01) ==
LOC: HO.HMGAL 10:51
PROVIDERS: PCP Internal Medicine; Visit Provider Registered Nurse Emergency
DX: J30.89 Other allergic rhinitis (principal)
CPT/HCPCS: 95117; 95165

== ENCOUNTER 2025-10-04 14:59 | Outpatient (AMB) | payer MEDICARE, SELFPAY ==
--- OUTSIDE RECORDS SUMMARY | 2025-09-29 09:20 | XMS_ITS | Encounter Summary ---
Author Organization [facility] Address [address] [place] [address] Care Team Providers Care Internet Database Specialist Name Role Phone Tone Valadez MD Primary Care Provider [phone] Encounter Details Date Type Department Care Team (Late st Contact Info) Description 09/29/2025 9:20 AM [facility] Lab Draw Station - [address] [phone] Screening for deficiency anemia; Routine history and physical examination of adult; Type 2 diabetes mellitus with diabetic microalbuminuria, without long-term current use of insulin (CMS/HCC V24, CMS/HCC V28); Primary hypertension; Pure hypercholesterolemia Social History Tobacco Use Types Packs/Day Years [...] for your loved ones. For example, child psychiatrist or elderly care for an older adult? [...] Care Team (Late st Contact Info) Description 10/06/2025 11:00 AM EST Treatment Outpatient Rehabilitation [place] [address] [place] [address] Jennifer Sainz, TAR CHASER 10/09/2025 9:00 AM EST Treatment Outpatient Rehabilitation - [address] [phone] Jennifer Sainz, TAR CHASER 10/12/2025 11:00 AM EST Treatment Outpatient Rehabilitation - [address] [phone] Jennifer Sainz, TAR CHASER 10/16/2025 9:00 AM EST Treatment Outpatient Rehabilitation - [address] [phone] Jennifer Sainz, TAR CHASER 10/18/2025 9:30 AM EST Treatment Outpatient Rehabilitation - [address] [phone] Xavi Paulino, PT 10/27/2025 8:40 AM EST Appointment Radiology Department - [address] [phone] 11/15/2025 8:00 AM EST Office Visit Endocrinology - [address] [phone] Farrah Giles PA [address] [place] [address] 01/22/2026 9:00 AM EDT Office Visit Orthopedic Surgery - [place] [address] [phone] Analia Moran PA [address] [address] 04/20/2026 9:30 AM EDT Office Visit Adult Medicine [facility] - [address] [phone] Tone Valadez MD [address] [place] [address] documented as of this encounter Procedures Procedure Name Priority Date/Time Associated Diagnosis Comments LIPID PANEL WITH REFLEX TO DIRECT LDL Routine 09/29/2025 9:24 AM EST Routine history and physical examination of adult Type 2 diabetes mellitus with diabetic microalbuminuria, without long-term current use of insulin ([facility] V24, [facility] V28) Pure hypercholesterolemia IRON AND TIBC Routine 09/29/2025 9:24 AM EST Screening for deficiency anemia COMPLETE BLOOD COUNT Routine 09/29/2025 9:24 AM EST Routine history and physical examination of adult HEMOGLOBIN A1C Routine 09/29/2025 9:24 AM EST Type 2 diabetes mellitus with diabetic microalbuminuria, without long-term current use of insulin ([facility] V24, [facility] V28) FERRITIN Routine 09/29/2025 9:24 AM EST Screening for deficiency anemia BASIC METABOLIC PANEL Routine 09/29/2025 9:24 AM EST Routine history and physical examination of adult Type 2 diabetes mellitus with diabetic microalbuminuria, without long-term current use of insulin ([facility] V24, [facility] V28) Primary hypertension documented in this encounter Results * Iron and TIBC (09/29/2025 9:24 AM EST) Iron 66 40 - 150 mcg/dL 09/29/2025 1:15 PM EST [facility] TIBC 390 250 - 450 mcg/dL 09/29/2025 1:15 PM EST [facility] Iron Saturation 17 15 - 50 % 1:15 PM EST [facility] Blood Venous blood specimen / Unknown Venipuncture / Unknown 09/29/2025 9:24 AM EST 09/29/2025 9:24 AM EST us Camilo MCKEON LAB BLOOD ORDERABLES Fi nal Result [facility] [address] [place] [address], * (ABNORMAL) Lipid panel with reflex to direct LDL (09/29/2025 9:24 AM EST) Cholesterol 179 0 - 200 mg/dL 09/29/2025 1:15 PM EST [facility] Triglycerides 206(H) 0 - 150 mg/dL 09/29/2025 1:15 PM EST [facility] HDL 55 >=40 mg/dL 09/29/2025 1:15 PM [facility] LDL Calculated 83 0 - 100 mg/dL 09/29/2025 1:15 PM [facility] Comment:Estimated LDL Calcul ated using equation: Total cholesterol - HDL cholesterol - (Triglycerides/5) VLDL Cholesterol Sammy 41.2 mg/dL 09/29/2025 1:15 PM EST [facility] Non HDL Chol. (LDL+VLDL) 124 <145 mg/dL 09/29/2025 1:15 PM [facility] Chol/HDL Ratio 3.3 0.0 - 4.4 09/29/2025 1:15 PM [facility] Blood Venous blood specimen / Unknown Venipuncture / Unknown 09/29/2025 9:24 AM EST 09/29/2025 9:24 AM EST Camilo MCKEON LAB BLOOD ORDERABLES Fi nal Result [facility] [address] [place] [address], [place] [phone] * (ABNORMAL) Hemoglobin A1c (09/29/2025 9:24 AM EST) Hemoglobin A1C 6.9(H) <6.5 % LAB CHEMISTRY METHOD 09/29/2025 8:20 PM EST [facility] Mean Bld Glu Estim. 151 mg/dL LAB CHEMISTRY METHOD 09/29/2025 8:20 PM [facility] Blood Venous blood specimen / Unknown Venipuncture / Unknown 09/29/2025 9:24 AM EST 09/29/2025 9:24 AM EST Camilo MCKEON LAB BLOOD ORDERABLES Fi nal Result [facility] [address] [place] [address], * (ABNORMAL) Basic metabolic panel (09/29/2025 9:24 AM EST) Sodium 141 133 - 145 mmol/L 09/29/2025 1:13 PM [facility] Potassium 4.6 3.5 - 5.5 mmol/L 09/29/2025 1:13 PM [facility] Chloride 103 96 - 110 mmol/L 09/29/2025 1:13 PM [facility] CO2 29 21 - 32 mmol/L 09/29/2025 1:13 PM [facility] Anion Gap 9 3 - 11 09/29/2025 1:13 PM [facility] Glucose 124(H) 70 - 100 mg/dL 09/29/2025 1:13 PM [facility] BUN 18 5 - 25 mg/dL 09/29/2025 1:13 PM [facility] Creatinine 0.81 0.50 - 1.10 mg/dL 09/29/2025 1:13 PM [facility] eGFR 76 >=60 mL/min/1. 73m2 09/29/2025 1:13 PM [facility] Comment:Calculation based on the Chronic Kidney Disease Epidemiology Collaboration (CKD-EPI) equation refit without adjustment for race. BUN/Creatinine Ratio 22.2 09/29/2025 1:13 PM [facility] Calcium 9.3 8.5 - 10.5 mg/dL 09/29/2025 1:13 PM [facility] Blood Venous blood specimen / Unknown Venipuncture / Unknown 09/29/2025 9:24 AM EST 09/29/2025 9:24 AM EST Camilo MCKEON LAB BLOOD ORDERABLES Fi nal Result [facility] [address] [place] [address], * Complete blood count (09/29/2025 9:24 AM EST) WBC 7.1 4.8 - 10.8 K/mcL LAB HEMETOLOGY METHOD 09/29/2025 12:31 PM [facility] RBC 4.20 3.80 - 4.80 M/[facility] LAB HEMETOLOGY METHOD 09/29/2025 12:31 PM [facility] Hemoglobin 13.3 11.5 - 16.0 g/dL LAB HEMETOLOGY METHOD 09/29/2025 12:31 PM [facility] Hematocrit 40.4 35.0 - 47.0 % LAB HEMETOLOGY METHOD 09/29/2025 12:31 PM [facility] MCV 96.7 79.0 - 98.0 FL LAB HEMETOLOGY METHOD 09/29/2025 12:31 PM [facility] MCH 31.8 27.0 - 32.0 pcg LAB HEMETOLOGY METHOD 09/29/2025 12:31 PM [facility] MCHC 32.9 32.0 - 37.0 g/dL LAB HEMETOLOGY METHOD 09/29/2025 12:31 PM [facility] RDW 12.9 11.0 - 15.0 % LAB HEMETOLOGY METHOD 09/29/2025 12:31 PM EST [facility] Platelets 199 130 - 400 K/mcL LAB HEMETOLOGY METHOD 09/29/2025 12:31 PM [facility] MPV 10.7 7.0 - 11.0 FL LAB HEMETOLOGY METHOD 09/29/2025 12:31 PM [facility] NRBC 0.0 <1.0 % LAB HEMETOLOGY METHOD 09/29/2025 12:31 PM [facility] NRBC Absolute 0.00 <0.10 K/mcL LAB HEMETOLOGY METHOD 09/29/2025 12:31 PM [facility] Blood Venous blood specimen / Unknown Venipuncture / Unknown 09/29/2025 9:24 AM EST 09/29/2025 9:24 AM EST Camilo Felix [place] LAB BLOOD ORDERABLES Fi nal Result [facility] [address] [place] [address], [place] [phone] * Ferritin (09/29/2025 9:24 AM EST) Ferritin 14 7 - 271 ng/mL 09/29/2025 1:11 PM [facility] Blood Venous blood specimen / Unknown Venipuncture / Unknown 09/29/2025 9:24 AM EST 09/29/2025 9:24 AM EST Camilo MCKEON LAB BLOOD ORDERABLES Fi nal Result [facility] [address] [place] [address], [place] [phone] documented in this encounter Visit Diagnoses Diagnosis Screening for deficiency anemia Screening for other and unspecified deficiency anemia Routine history and physical examination of adult Type 2 diabetes mellitus with diabetic microalbuminuria, without long-term current use of insulin ([facility] V24, [facility] V28) Primary hypertension Unspecified essential hypertension Pure hypercholesterolemia documented in this encounter Additional Health Concerns Assessment Noted Time PHQ-9 Depression Total Score: 0 04/17/20 25 2:01 PM EDT documented as of this encounter Care Teams Internet Database Specialist Relationship Specialty Start Date End Date Tone Valadez MD [address] [place] [phone] PCP - General Internal Medicine 06/13/20 documented as of this encounter
--- OUTSIDE RECORDS SUMMARY | 2025-09-29 09:27 | XMS_ITS | Encounter Summary ---
Author Organization [facility] Address [address] [place] [address] Care Team Providers Care Renal Medicine Specialist Name Role Phone Tone Valadez MD Primary Care Provider [phone] Encounter Details Date Type Department Care Team (Latest Contact Info) Description 09/29/2025 9:27 AM EST - 09/29/2025 11:59 PM [facility] Hospital Encounter XRAY - [place] [address] [place] [address] MAJOR (dyspnea on exertion) Discharge Disposition: Home or Self Care Social [...] loved ones. For example, child day care provider or elderly care for an older adult? [...] each day. 30 g 2 04/24/2025 lancets (DolosysTouch Delica Plus Lancet) 33 gaugeIndications:T ype 2 diabetes mellitus with diabetic microalbuminuria, without long-term current use of insulin ([facility] V24, [facility] V28) Use daily to check blood sugar 100 each 11 07/18/2025 lansoprazole (PREVACID) [address] capsule Take 1 capsule (30 mg total) by mouth 1 (one) time each day. Do not crush or chew. 90 each 3 05/25/2025 lisinopriL (PRINIVIL,ZESTRIL) 5 mg tablet TAKE 1 TABLET BY MOUTH EVERY DAY 90 tablet 1 08/10/2025 loratadine (CLARITIN) 10 mg tablet Take 1 tablet (10 mg total) by mouth 1 (one) time each day. 09/03/2023 metFORMIN XR (GLUCOPHAGE-XR) 500 mg 24 hr tablet TAKE 1 TABLET BY MOUTH TWICE A DAY 180 tablet 1 08/10/2025 mv-min/iron/folic/ calcium/vitK (WOMEN'S MULTIVITAMIN ORAL) Take by mouth. omega-3 acid ethyl esters (LOVAZA) 1 gram capsule Take by mouth. DolosysTouch Ultra Test test strip USE TO TEST BLOOD SUGAR ONCE A DAY 100 strip 3 05/10/2025 DolosysTouch Ultra2 Meter misc 1 each by Other [...] 10/06/2025 11:00 AM EST Treatment Outpatient Rehabilitation [address] [phone] Jennifer Sainz, SANDSTONE SPLITTER 10/09/2025 9:00 AM EST Treatment Outpatient Rehabilitation [address] [phone] Jennifer Sainz, SANDSTONE SPLITTER 10/12/2025 11:00 AM EST Treatment Outpatient Rehabilitation - [address] [phone] Jennifer Sainz, SANDSTONE SPLITTER 10/16/2025 9:00 AM EST Treatment Outpatient Rehabilitation - [address] [phone] Jennifer Sainz, SANDSTONE SPLITTER 10/18/2025 9:30 AM EST Treatment Outpatient Rehabilitation - [address] [phone] Xavi Paulino, PT 10/27/2025 8:40 AM EST Appointment Radiology Department - [address] [phone] 11/15/2025 8:00 AM EST Office Visit Endocrinology - [address] [phone] Farrah Giles PA [address] [place] [address] 01/22/2026 9:00 AM EDT Office Visit Orthopedic Surgery - [place] [address] [phone] Analia Moran PA [address] [address] 04/20/2026 9:30 AM EDT Office Visit Adult Medicine South - [address] [phone] Tone Valadez MD [address] [place] [address] documented as of this encounter Procedures Procedure Name Priority Date/Time Associated Diagnosis Comments XR CHEST 2 VIEWS Routine 09/29/2025 9:37 AM EST MAJOR (dyspnea on exertion) documented [...] Signed Date: 09/29/2025 10:56 ET Workstation ID: [id number] Transcribed By: Self Edit Transcribed Date: 09/29/2025 [...] Signed Date: 09/29/2025 10:56 ET Workstation ID: [id number] Transcribed By: Self Edit Transcribed Date: 09/29/2025 10:55 ET Camilo MCKEON IMG XR PROCEDURES Final Result documented in this encounter Visit Diagnoses Diagnosis MAJOR (dyspnea on exertion) Other dyspnea and respiratory abnormality documented in this encounter Additional Health Concerns Assessment Noted Time PHQ-9 Depression Total Score: 0 04/17/20 25 2:01 PM EDT documented as of this encounter Care Teams Renal Medicine Specialist Relationship Specialty Start Date End Date Tone Valadez MD [address] [place] [phone] PCP - General Internal Medicine 06/13/20 documented as of this encounter
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
--- OUTSIDE RECORDS SUMMARY | 2025-10-04 17:35 | XMS_ITS | Encounter Summary ---
Author Organization [facility] Address [address] [place] [address] Care Team Providers Care Gift Packer Name Role Phone Tone Valadez MD Primary Care Provider [phone] Encounter Details Date Type Department Care Team (Late st Contact Info) Description 09/30/2025 Results Follow-Up Adult Medicine [address] [phone] Camilo Felix PA [address] [place] [address] Social History Tobacco Use Types Packs/Day Years [...] ed Within the last 3 months, myles w many times did you visit the [...] your loved ones. For example, child care director or elderly care for an older [...] Upcoming Encounters Date Type Department Care Team ([facility] st Contact Info) Description 10/06/2025 11:00 AM EST Treatment Outpatient Rehabilitation [address] [phone] Jennifer Sainz, TERRAZZO TILE SETTER 10/09/2025 9:00 AM EST Treatment Outpatient Rehabilitation - [address] [phone] Jennifer Sainz, TERRAZZO TILE SETTER 10/12/2025 11:00 AM EST Treatment Outpatient Rehabilitation - [address] [phone] Jennifer Sainz, TERRAZZO TILE SETTER 10/16/2025 9:00 AM EST Treatment Outpatient Rehabilitation - [address] [phone] Jennifer Sainz, TERRAZZO TILE SETTER 10/18/2025 9:30 AM EST Treatment Outpatient Rehabilitation - [address] [phone] Xavi Paulino, PT 10/27/2025 8:40 AM EST Appointment Radiology Department - [address] [phone] 11/15/2025 8:00 AM EST Office Visit Endocrinology - [address] [phone] Farrah Giles PA [address] [place] [address] 01/22/2026 9:00 AM EDT Office Visit Orthopedic Surgery - [place] [address] [phone] Analia Moran PA [address] [address] 04/20/2026 9:30 AM EDT Office Visit Adult Medicine South - [address] [phone] Tone Valadez MD [address] [place] [address] documented as of this encounter Visit Diagnoses Not on filedocumented in this encounter Additional Health Concerns Assessment Noted Time PHQ-9 Depression Total Score: 0 04/17/20 25 2:01 PM EDT documented as of this encounter Care Teams Gift Packer Relationship Specialty Start Date End Date Tone Valadez MD [address] [place] [address] PCP - General Internal Medicine 06/13/20 documented as of this encounter
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
--- OUTSIDE RECORDS SUMMARY | 2025-10-04 17:35 | XMS_ITS | Encounter Summary ---
Author Organization [facility] Address [address] [place] [address] Care Team Providers Care Mailroom Courier Name Role Phone Tone Valadez MD Primary Care Provider [phone] Encounter Details Date Type Department Care Team (Late st Contact Info) Description 08/21/2025 Results Follow-Up Adult Medicine [address] [phone] Tone Valadez MD [address] [place] [address] Social History Tobacco Use Types Packs/Day Years [...] for your loved ones. For example, children's entertainer or elderly care for an older adult? [...] Description 10/06/2025 11:00 AM EST Treatment Outpatient [place] [address] [place] [address] Jennifer Sainz, INSTRUMENT ADJUSTER 10/09/2025 9:00 AM EST Treatment Outpatient Rehabilitation - [address] [phone] Jennifer Sainz, INSTRUMENT ADJUSTER 10/12/2025 11:00 AM EST Treatment Outpatient Rehabilitation - [address] [phone] Jennifer Sainz, INSTRUMENT ADJUSTER 10/16/2025 9:00 AM EST Treatment Outpatient Rehabilitation - [address] [phone] Jennifer Sainz, INSTRUMENT ADJUSTER 10/18/2025 9:30 AM EST Treatment Outpatient Rehabilitation - [address] [phone] Xavi Paulino, PT 10/27/2025 8:40 AM EST Appointment Radiology Department - [address] [phone] 11/15/2025 8:00 AM EST Office Visit Endocrinology - [address] [phone] Farrah Giles PA [address] [place] [address] 01/22/2026 9:00 AM EDT Office Visit Orthopedic Surgery - [place] [phone] [phone] Analia Moran PA [address] [address] 04/20/2026 9:30 AM EDT Office Visit Adult Medicine South - [address] [phone] Tone Valadez MD [address] [place] [address] documented as of this encounter Visit Diagnoses Not on filedocumented in this encounter Additional Health Concerns Assessment Noted Time PHQ-9 Depression Total Score: 0 04/17/20 25 2:01 PM EDT documented as of this encounter Care Teams Mailroom Courier Relationship Specialty Start Date End Date Tone Valadez MD [address] [place] [phone] PCP - General Internal Medicine 06/13/20 documented as of this encounter
== END 2025-10-04 14:59 | disposition home or self-care (01) ==
LOC: HO.HMGAL 14:59
PROVIDERS: PCP Internal Medicine; Visit Provider Registered Nurse Emergency
DX: J30.89 Other allergic rhinitis (principal)
CPT/HCPCS: 95117; 95165

== ENCOUNTER 2025-10-11 15:05 | Outpatient (AMB) | payer MEDICARE, SELFPAY ==
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
--- OUTSIDE RECORDS SUMMARY | 2025-10-11 18:09 | XMS_ITS | Encounter Summary ---
Author Organization [facility] Address [address] [place] [address] Care Team Providers Care Small Business Sales Representative Name Role Phone Tone Valadez MD Primary Care Provider [phone] Encounter Details Date Type Department Care Team (Late st Contact Info) Description 09/30/2025 Results Follow-Up Adult Medicine [address] [phone] Camilo Felix PA [address] [place] [address] Social History Tobacco Use Types Packs/Day Years [...] Upcoming Encounters Date Type Department Care Team ([facility] st Contact Info) Description 10/12/2025 11:00 AM EST Treatment Outpatient Rehabilitation [address] [phone] Jennifer Sainz, WARPER FIXER 10/16/2025 9:00 AM EST Treatment Outpatient Rehabilitation - [address] [phone] Jennifer Sainz, WARPER FIXER 10/18/2025 9:30 AM EST Treatment Outpatient Rehabilitation - [address] [phone] Xavi Paulino, PT 10/27/2025 8:40 AM EST Appointment Radiology Department - [address] [phone] 11/15/2025 8:00 AM EST Office Visit Endocrinology - [address] [phone] Farrah Giles PA [address] [place] [address] 12/21/2025 3:30 PM EST Ancillary Procedure [facility] - [facility] 101 300 [facility] 101 [place] [address] 01/22/2026 9:00 AM EDT Office Visit Orthopedic Surgery - [place] [address] [phone] Analia Moran PA [address] [address] 04/20/2026 9:30 AM EDT Office Visit Adult Medicine [facility] - [address] [phone] Tone Valadez MD [address] [place] [address] documented as of this encounter Visit Diagnoses Not on filedocumented in this encounter Additional Health Concerns Assessment Noted Time PHQ-9 Depression Total Score: 0 04/17/20 25 2:01 PM EDT documented as of this encounter Care Teams Small Business Sales Representative Relationship Specialty Start Date End Date Tone Valadez MD [address] [place] [address] PCP - General Internal Medicine 06/13/20 documented as of this encounter
--- OUTSIDE RECORDS SUMMARY | 2025-10-11 18:09 | XMS_ITS | Encounter Summary ---
Author Organization [facility] Address [address] [place] [address] Care Team Providers Care Avionics Test Technician Name Role Phone Tone Valadez MD Primary Care Provider [phone] Encounter Details Date Type Department Care Team (Late st Contact Info) Description 08/21/2025 Results Follow-Up Adult Medicine [address] [phone] Tone Valadez MD [address] [place] [address] Social History Tobacco Use Types Packs/Day Years [...] Description 10/12/2025 11:00 AM EST Treatment [facility] [address] [place] [address] Jennifer Sainz, DEADENER 10/16/2025 9:00 AM EST Treatment Outpatient Rehabilitation - [address] [phone] Jennifer Sainz, DEADENER 10/18/2025 9:30 AM EST Treatment Outpatient Rehabilitation - [address] [phone] Xavi Paulino, PT 10/27/2025 8:40 AM EST Appointment Radiology Department - [address] [phone] 11/15/2025 8:00 AM EST Office Visit Endocrinology - [address] [phone] Farrah Giles PA [address] [place] [address] 12/21/2025 3:30 PM EST Ancillary Procedure [facility] - [facility] 101 300 [facility] 101 [place] [address] 01/22/2026 9:00 AM EDT Office Visit Orthopedic Surgery - [place] 160 175 [facility] 160 [place] [address] Analia Moran PA [address] [address] 04/20/2026 9:30 AM EDT Office Visit Adult Medicine [facility] - [address] [phone] Tone Valadez MD [address] [place] [address] documented as of this encounter Visit Diagnoses Not on filedocumented in this encounter Additional Health Concerns Assessment Noted Time PHQ-9 Depression Total Score: 0 04/17/20 25 2:01 PM EDT documented as of this encounter Care Teams Avionics Test Technician Relationship Specialty Start Date End Date Tone Valadez MD [address] [place] [phone] PCP - General Internal Medicine 06/13/20 documented as of this encounter
== END 2025-10-11 15:05 | disposition home or self-care (01) ==
LOC: HO.HMGAL 15:05
PROVIDERS: PCP Internal Medicine; Visit Provider Registered Nurse Emergency
DX: J30.89 Other allergic rhinitis (principal)
CPT/HCPCS: 95117; 95165

== ENCOUNTER 2025-10-18 11:24 | Outpatient (AMB) | payer MEDICARE, SELFPAY | END 2025-10-18 11:25 | disposition home or self-care (01) | LOC: HO.HMGAL 11:24 | PROVIDERS: PCP Internal Medicine; Visit Provider Registered Nurse Emergency | DX: J30.89 Other allergic rhinitis (principal) | CPT/HCPCS: 95117; 95165 ==

== ENCOUNTER 2025-10-25 10:40 | Outpatient (AMB) | payer MEDICARE, SELFPAY ==
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
--- OUTSIDE RECORDS SUMMARY | 2025-10-25 13:34 | XMS_ITS | Encounter Summary ---
Author Organization [facility] Address [address] [place] [address] Care Team Providers Care Piledriver Carpenter Name Role Phone Tone Valadez MD Primary Care Provider [phone] Encounter Details Date Type Department Care Team (Late st Contact Info) Description 08/21/2025 Results Follow-Up Adult Medicine [address] [phone] Tone Valadez MD [address] [place] [address] Social History Tobacco Use Types Packs/Day Years [...] Upcoming Encounters Date Type Department Care Team ([facility] [place] [facility] st Contact Info) Description 10/27/2025 8:40 AM EST Appointment Radiology Department [address] [phone] 10/27/2025 1:00 PM EST Treatment Outpatient Rehabilitation [address] [phone] Jennifer Sainz, WORD PROCESSOR OPERATOR 2025 12:00 PM EST Treatment Outpatient [address] [phone] Jennifer Sainz, WORD PROCESSOR OPERATOR 10/31/2025 10:00 AM EST Consult Adult Medicine [address] [phone] Tone Valadez MD [address] [place] [address] 11/03/2025 10:00 AM EST Treatment Outpatient [address] [phone] Jennifer Sainz, WORD PROCESSOR OPERATOR 11/07/2025 12:00 PM EST Treatment Outpatient [address] [phone] Xavi Paulino, PT 11/15/2025 8:00 AM EST Office Visit Endocrinology [address] [phone] Farrah Giles PA [address] [place] [address] 12/21/2025 3:30 PM EST Ancillary Procedure [facility] - [facility] [address] [facility] 101 [place] [address] 01/22/2026 9:00 AM EDT Office Visit Orthopedic Surgery - [place] [address] [phone] Analia Moran, PA [address] [address] 04/20/2026 9:30 AM EDT Office Visit Adult Medicine [facility] [address] [place] [address] Tone Valadez MD [address] [place] [address] documented as of this encounter Visit Diagnoses Not on filedocumented in this encounter Additional Health Concerns Assessment Noted Time PHQ-9 Depression Total Score: 0 04/17/20 25 2:01 PM EDT documented as of this encounter Care Teams Piledriver Carpenter Relationship Specialty Start Date End Date Tone Valadez MD [address] [place] [address] PCP - General Internal Medicine 06/13/20 documented as of this encounter
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
--- OUTSIDE RECORDS SUMMARY | 2025-10-25 13:34 | XMS_ITS | Encounter Summary ---
Author Organization [facility] Address [address] [place] [address] Care Team Providers Care Oliver Filter Operator Name Role Phone Tone Valadez MD Primary Care Provider [phone] Encounter Details Date Type Department Care Team (Late st Contact Info) Description 09/30/2025 Results Follow-Up Adult Medicine [address] [phone] Camilo Felix PA [address] [place] [address] Social History Tobacco Use Types Packs/Day Years [...] for your loved ones. For example, children's zoo caretaker or elderly care for an older adult? [...] Upcoming Encounters Date Type Department Care Team ([facility] Contact Info) Description 10/27/2025 8:40 AM EST Appointment Radiology Department [address] [phone] 10/27/2025 1:00 PM EST Treatment Outpatient [address] [phone] Jennifer Sainz, CAR SUPERVISOR 2025 12:00 PM EST Treatment Outpatient [address] [phone] Jennifer Sainz, CAR SUPERVISOR 10/31/2025 10:00 AM EST Consult Adult Medicine [address] [phone] Tone Valadez MD [address] [place] [address] 11/03/2025 10:00 AM EST Treatment Outpatient [address] [phone] Jennifer Sainz, CAR SUPERVISOR 11/07/2025 12:00 PM EST Treatment Outpatient [address] [phone] Xavi Paulino, PT 11/15/2025 8:00 AM EST Office Visit Endocrinology [address] [phone] Farrah Giles PA [address] [place] [address] 12/21/2025 3:30 PM EST Ancillary Procedure [facility] 101 300 [facility] 101 [place] [address] 01/22/2026 9:00 AM EDT Office Visit Orthopedic Surgery - [place] [address] [phone] Analia Moran, PA 175 [facility] 160 [place] [address] 04/20/2026 9:30 AM EDT Office Visit Adult Medicine [address] [phone] Tone Valadez MD [address] [place] [address] documented as of this encounter Visit Diagnoses Not on filedocumented in this encounter Additional Health Concerns Assessment Noted Time PHQ-9 Depression Total Score: 0 04/17/20 25 2:01 PM EDT documented as of this encounter Care Teams Oliver Filter Operator Relationship Specialty Start Date End Date Tone Valadez MD [address] [place] [address] PCP - General Internal Medicine 06/13/20 documented as of this encounter
== END 2025-10-25 10:40 | disposition home or self-care (01) ==
LOC: HO.HMGAL 10:40
PROVIDERS: PCP Internal Medicine; Visit Provider Registered Nurse Emergency
DX: J30.89 Other allergic rhinitis (principal)
CPT/HCPCS: 95117; 95165

== ENCOUNTER 2025-10-30 15:50 | Outpatient (AMB) | payer MEDICARE, SELFPAY ==
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
--- OUTSIDE RECORDS SUMMARY | 2025-10-30 18:40 | XMS_ITS | Encounter Summary ---
Author Organization [facility] Address [address] [place] [address] Care Team Providers Care Stock Or Delivery Clerk Name Role Phone Tone Valadez MD Primary Care Provider [phone] Encounter Details Date Type Department Care Team (Late st Contact Info) Description 09/30/2025 Results Follow-Up Adult Medicine [address] [phone] Camilo Felix PA [address] [place] [address] Social History Tobacco Use Types Packs/Day Years [...] for your loved ones. For example, child caregiver or elderly care for an older adult? [...] 10/31/2025 10:00 AM EST Consult Adult Medicine [address] [phone] Tone Valadez MD [address] [place] [address] 11/03/2025 10:00 AM EST Treatment Outpatient Rehabilitation - [address] [phone] Emeli Jennifer Springer, INTERNATIONAL FIRST OFFICER 11/07/2025 12:00 PM EST Treatment Outpatient Rehabilitation - [address] [phone] Xavi Paulino, PT 11/15/2025 8:00 AM EST Office Visit Endocrinology - [address] [phone] Farrah Giles PA [address] [place] [address] 12/21/2025 3:30 PM EST Ancillary Procedure [facility] [address] [facility] 101 [place] [address] 01/22/2026 9:00 AM EDT Office Visit Orthopedic Surgery - [place] [address] [phone] Analia Moran PA [address] [address] 04/20/2026 9:30 AM EDT Office Visit Adult Medicine [facility] - [address] [phone] Tone Valadez MD [address] [place] [address] documented as of this encounter Visit Diagnoses Not on filedocumented in this encounter Additional Health Concerns Assessment Noted Time PHQ-9 Depression Total Score: 0 04/17/20 25 2:01 PM EDT documented as of this encounter Care Teams Stock Or Delivery Clerk Relationship Specialty Start Date End Date Tone Valadez MD [address] [place] [address] PCP - General Internal Medicine 06/13/20 documented as of this encounter
== END 2025-10-30 15:50 | disposition home or self-care (01) ==
LOC: HO.HMGAL 15:50
PROVIDERS: PCP Internal Medicine; Visit Provider Registered Nurse Emergency
DX: J30.89 Other allergic rhinitis (principal)
CPT/HCPCS: 95117; 95165

== ENCOUNTER 2025-11-08 12:18 | Outpatient (AMB) | payer MEDICARE, SELFPAY ==
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
--- OUTSIDE RECORDS SUMMARY | 2025-11-08 14:05 | XMS_ITS | Encounter Summary ---
Author Organization [facility] Address [address] [place] [address] Care Team Providers Care Conveyor Attendant Name Role Phone Tone Valadez MD Primary Care Provider [phone] Encounter Details Date Type Department Care Team (Late st Contact Info) Description 09/30/2025 Results Follow-Up Adult Medicine [address] [phone] Camilo Felix PA [address] [place] [address] Social History Tobacco Use Types Packs/Day Years [...] loved ones. For example, child and family services specialist or elderly care for an older [...] 8:00 AM EST Office Visit Endocrinology - [address] [phone] Farrah Giles PA [address] [place] [address] 12/21/2025 3:30 PM EST Ancillary Procedure [facility] - [address] [facility] [address] [place] [address] 01/22/2026 9:00 AM EDT Office Visit Orthopedic Surgery - [place] [address] [facility] [address] [place] [address] Analia Moran PA 175 [facility] [address] [place] [address] 04/20/2026 9:30 AM EDT Office Visit Adult Medicine [address] [phone] Tone Valadez MD [address] [place] [address] documented as of this encounter Visit Diagnoses Not on filedocumented in this encounter Additional Health Concerns Assessment Noted Time PHQ-9 Depression Total Score: 0 04/17/20 25 2:01 PM EDT documented as of this encounter Care Teams Conveyor Attendant Relationship Specialty Start Date End Date Tone Valadez MD [address] [place] [address] PCP - General Internal Medicine 06/13/20 documented as of this encounter
== END 2025-11-08 12:19 | disposition home or self-care (01) ==
LOC: HO.HMGAL 12:18
PROVIDERS: PCP Internal Medicine; Visit Provider Registered Nurse Emergency
DX: J30.89 Other allergic rhinitis (principal)
CPT/HCPCS: 95117; 95165